=== PATIENT | male | born 1975 | race Caucasian/White ===

== ENCOUNTER 2018-03-17 10:56 | Inpatient (IN) | payer OTHER ==
[2018-03-17 12:12] VITALS: BMI 20.3
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
[2018-03-17] MEDS ORDERED: ACETAMINOPHEN 325 MG TABLET (FP) PO PRN (14:06)
[2018-03-17] MEDS ORDERED: IBUPROFEN 400 MG TABLET (FP) PO PRN (14:06)
[2018-03-17] MEDS ORDERED: guaiFENesin/D-METHORPHAN HB 10 ML UNIT-DOSE CUPS PO PRN (14:06)
[2018-03-17] MEDS ORDERED: LOPERAMIDE HCL 2 MG CAPSULE PO PRN (14:06)
[2018-03-17] MEDS ORDERED: MAGNESIUM HYDROX 2400MG/30ML ORAL SUSPENSION 30 ML CUP PO PRN (14:06)
[2018-03-17] MEDS ORDERED: MAGNESIUM CITRATE 300 ML BOTTLE PO PRN (14:06)
[2018-03-17] MEDS ORDERED: NICOTINE POLACRILEX 4 MG GUM BUC PRN (14:06)
[2018-03-17] MEDS ORDERED: P-EPHED 60MG/TRIPROLIDI 2.5MG TABLET PO PRN (14:06)
[2018-03-17] MEDS ORDERED: MENTHOL/PHENOL 1 EACH UD MM PRN (14:06)
[2018-03-17] MEDS ORDERED: hydrOXYzine PAMOATE 25 MG CAPSULE (FP) PO PRN (14:06)
[2018-03-17] MEDS ORDERED: chlordiazePOXIDE HCL 25 MG CAPSULE PO PRN (14:06)
[2018-03-17] MEDS ORDERED: MAG HYDROX/AL HYDROX/SIMETH 30 ML UNIT-DOSE CUP PO PRN (14:06)
[2018-03-17] MEDS ORDERED: ALBUTEROL SO4 8 GM HFA INHALER IH PRN (14:09)
[2018-03-17] MEDS: chlordiazePOXIDE HCL 25 MG CAPSULE PO SCH ×2 (17:20→22:05)
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
[2018-03-17] MEDS: THIAMINE HCL 100 MG TABLET (FP) PO SCH (22:05)
[2018-03-17] MEDS: MELATONIN 5 MG TABLETS PO PRN (22:06)
[2018-03-18] MEDS ORDERED: METHADONE HCL 40 MG DISPERSABLE TABLET ONE (04:15)
[2018-03-18] MEDS ORDERED: METHADONE HCL 10 MG TABLET ONE (04:15)
[2018-03-18] MEDS: METHADONE 80 MG, METHADONE 30 MG PO SCH (05:42)
[2018-03-18] MEDS: chlordiazePOXIDE HCL 25 MG CAPSULE PO SCH ×4 (05:42→22:15)
[2018-03-18] MEDS ORDERED: METHADONE HCL 10 MG TABLET PO SCH (06:00)
[2018-03-18] MEDS: PRENATAL VITAMINS W/ FOLIC ACID TABLET (FP) PO SCH (10:34)
[2018-03-18] MEDS: NICOTINE 21 MG/24 HOURS TOPICAL PATCH TD SCH (10:35)
[2018-03-18 10:59] LABS: URINE APPEARANCE CLEAR; URINE BILIRUBIN NEGATIVE (<2.0 mg/dL); URINE COLOR STRAW; URINE GLUCOSE (UA) NEGATIVE (NEGATIVE); URINE KETONE NEGATIVE (NEGATIVE); URINE LEUK ESTERASE NEGATIVE (NEGATIVE); URINE NITRITE NEGATIVE (NEGATIVE); URINE PROTEIN NEGATIVE (NEGATIVE); URINE UROBILINOGEN NEGATIVE mg/dL (0.2-1.0)
[2018-03-18 11:22] LABS: ALBUMIN 3.8 g/dl (3.4-5.0); ANION GAP 13 MMOL/L (8-16); BLOOD UREA NITROGEN 8 mg/dL (7-18); CALCIUM 8.6 mg/dL (8.5-10.1); CHLORIDE 104 mmol/L (98-107); CO2 21 mmol/L (21-32); GLUCOSE,RANDOM 143 mg/dL (74-106); POTASSIUM 4.2 mmol/L (3.5-5.1); SODIUM 138 mmol/L (136-145)
[2018-03-18 11:27] LABS: ALK PHOS 170 U/L (45-117); CREATININE 0.6 mg/dL (0.55-1.3); HEMATOCRIT 38.5 % (35.4-49); HEMOGLOBIN 12.9 GM/dL (11.7-16.9); MCH 33.9 pg (25.7-33.7); MCHC 33.4 g/dl (32.0-35.9); MEAN CELL VOLUME 101.6 fl (80-96); MEAN PLT VOLUME 10.4 fl (7.5-11.1); PLATELET COUNT 139 K/MM3 (134-434); RBC 3.79 M/mm3 (4.00-5.60); RDW 12.7 % (11.9-15.9); SGOT/AST 108 U/L (15-37); SGPT/ALT 117 U/L (13-61); TOT PROT 7.8 g/dl (6.4-8.2); WHITE BLOOD COUNT 6.2 K/mm3 (4.0-10.0)
[2018-03-18] MEDS: MELATONIN 5 MG TABLETS PO PRN (22:15)
[2018-03-18] MEDS: THIAMINE HCL 100 MG TABLET (FP) PO SCH (22:15)
[2018-03-19] MEDS ORDERED: METHADONE HCL 40 MG DISPERSABLE TABLET ONE (04:12)
[2018-03-19] MEDS ORDERED: METHADONE HCL 10 MG TABLET ONE (04:12)
[2018-03-19] MEDS: METHADONE 80 MG, METHADONE 30 MG PO SCH (05:37)
[2018-03-19] MEDS: chlordiazePOXIDE HCL 25 MG CAPSULE PO SCH ×2 (05:38→10:16)
[2018-03-19] MEDS: PRENATAL VITAMINS W/ FOLIC ACID TABLET (FP) PO SCH (10:16)
[2018-03-19] MEDS: NICOTINE 21 MG/24 HOURS TOPICAL PATCH TD SCH (10:16)
--- NOTE | 2018-03-19 16:30 | DS ---
[facility] Detox Discharge Summary Admission Date: 03/17/18 Discharge Date: 03/19/18 - History Present History: Alcohol Dependence, Opioid Dependence Pertinent Past History: Asthma Hepatitis C - Physical Exam Results Vital Signs: Vital Signs Temperature 97.4 F L 03/19/18 14:08 Pulse Rate 68 03/19/18 14:08 Respiratory Rate 18 03/19/18 14:08 Blood Pressure 108/74 03/19/18 14:08 O2 Sat by Pulse Oximetry (%) Pertinent Admission Physical Exam Findings: Withdrawal symptoms Laboratory Tests 03/18/18 03/18/18 03/18/18 05:40 05:40 05:40 WBC 6.2 RBC 3.79 L Hgb 12.9 Hct 38.5 MCV 101.6 H MCH 33.9 H MCHC 33.4 RDW 12.7 Plt Count 139 D MPV 10.4 Sodium 138 Potassium 4.2 Chloride 104 Carbon Dioxide 21 Anion Gap 13 BUN 8 Creatinine 0.6 Creat Clearance w eGFR > 60 Random Glucose 143 H Calcium 8.6 Total Bilirubin 1.0 AST 108 H ALT 117 H Alkaline Phosphatase 170 H Total Protein 7.8 Albumin 3.8 Urine Color Urine Appearance Urine pH Ur Specific [place] Urine Protein Urine Glucose (UA) Urine Ketones Urine Blood Urine Nitrite Urine Bilirubin Urine Urobilinogen Ur Leukocyte Esterase RPR Titer Nonreactive 03/18/18 09:00 WBC RBC Hgb Hct MCV MCH MCHC RDW Plt Count MPV Sodium Potassium Chloride Carbon Dioxide Anion Gap BUN Creatinine Creat Clearance w eGFR Random Glucose Calcium Total Bilirubin AST ALT Alkaline Phosphatase Total Protein Albumin Urine Color Straw Urine Appearance Clear Urine pH 6.0 Ur Specific [place] 1.004 Urine Protein Negative Urine Glucose (UA) Negative Urine Ketones Negative Urine Blood Negative Urine Nitrite Negative Urine Bilirubin Negative Urine Urobilinogen Negative Ur Leukocyte Esterase Negative RPR Titer Labs reviewed: serum glucose 143 - Medication Discharge Medications: Ambulatory Orders Albuterol Sulfate Inhaler - [Ventolin Hfa Inhaler -] 2 inh PO Q4H PRN 03/17/18 - Diagnosis (1) Hyperglycemia Current Visit: Yes Status: Acute (2) Alcohol dependence with withdrawal, uncomplicated Current Visit: Yes Status: Acute (3) Hepatitis C Current Visit: Yes Status: Chronic (4) Insomnia Current Visit: Yes Status: Acute (5) Nicotine dependence Current Visit: Yes Status: Chronic Qualifiers: Nicotine product type: cigarettes Substance use status: uncomplicated Qualified Code(s): F17.210 - Nicotine dependence, cigarettes, uncomplicated (6) Opioid dependence on agonist therapy Current Visit: Yes Status: Acute (7) Asthma Current Visit: Yes Status: Chronic Qualifiers: Asthma severity: mild Asthma persistence: intermittent (8) Depression Current Visit: Yes Status: Chronic Qualifiers: Depression Type: unspecified Qualified Code(s): F32.9 - Major depressive disorder, single episode, unspecified (9) Substance induced mood disorder Current Visit: Yes Status: Acute - AMA Did Patient Leave Against Medical Advice: Yes (F/U with PCP within 3 days, proceed to ER stat if feel sick)
[2018-03-19] MEDS: chlordiazePOXIDE 5 MG CAPSULE PO SCH ×2 (17:39→22:33)
[2018-03-19] MEDS: THIAMINE HCL 100 MG TABLET (FP) PO SCH (22:33)
[2018-03-19] MEDS: MELATONIN 5 MG TABLETS PO PRN (22:35)
--- NOTE | 2018-03-19 22:36 | EKG ---
Test Reason : Blood Pressure : / mmHG Vent. Rate : 067 BPM Atrial Rate : 067 BPM P-R Int : 128 ms QRS Dur : 090 ms QT Int : 392 ms P-R-T Axes : 074 069 047 degrees QTc Int : 414 ms NORMAL SINUS RHYTHM VOLTAGE CRITERIA FOR LEFT VENTRICULAR HYPERTROPHY ABNORMAL ECG NO PREVIOUS ECGS AVAILABLE Confirmed by JUDY GIVENS MD ([id number]) on 03/19/2018 10:36:23 PM Referred By: Confirmed By:JUDY GIVENS MD
[2018-03-20] MEDS ORDERED: METHADONE HCL 10 MG TABLET ONE (04:32)
[2018-03-20] MEDS ORDERED: METHADONE HCL 40 MG DISPERSABLE TABLET ONE (04:32)
[2018-03-20] MEDS: METHADONE 80 MG, METHADONE 30 MG PO SCH (05:39)
[2018-03-20] MEDS: chlordiazePOXIDE 5 MG CAPSULE PO SCH ×2 (05:39→10:25)
[2018-03-20 09:17] VITALS: BP 110/76; PULSE 83; TEMP 97.8
[2018-03-20] MEDS: PRENATAL VITAMINS W/ FOLIC ACID TABLET (FP) PO SCH (10:25)
[2018-03-20] MEDS: NICOTINE 21 MG/24 HOURS TOPICAL PATCH TD SCH (10:26)
--- NOTE | 2018-03-20 12:07 | PN ---
BHS Progress Note (SOAP) Subjective: requesting to be discharged today States he has to go take his daughter to school in the a.m Objective: 03/20/18 12:06 A & O x 3 Vital Signs Temperature 97.8 F 03/20/18 09:17 Pulse Rate 83 03/20/18 09:17 Respiratory Rate 18 03/20/18 09:17 Blood Pressure 110/76 03/20/18 09:17 O2 Sat by Pulse Oximetry (%) Assessment: 03/20/18 12:07 Prescription albuterol sent to [facility] Pt will sign out AMA
--- NOTE | 2018-03-20 12:10 | DS ---
[facility] Detox Discharge Summary Admission Date: 03/17/18 Discharge Date: 03/20/18 - History Additional Comments: pt signing out AMA pls see progress note - Physical Exam Results Vital Signs: Vital Signs Temperature 97.8 F 03/20/18 09:17 Pulse Rate 83 03/20/18 09:17 Respiratory Rate 18 03/20/18 09:17 Blood Pressure 110/76 03/20/18 09:17 O2 Sat by Pulse Oximetry (%) - Medication Discharge Medications: Ambulatory Orders Albuterol Sulfate Inhaler - [Ventolin HFA Inhaler -] 2 inh PO Q4H PRN #1 inhaler 03/20/18 - Diagnosis (1) Alcohol dependence with withdrawal, uncomplicated Current Visit: Yes Status: Acute (2) Opioid dependence on agonist therapy Current Visit: Yes Status: Chronic (3) Substance induced mood disorder Current Visit: Yes Status: Chronic (4) Asthma Current Visit: Yes Status: Chronic Qualifiers: Asthma severity: mild Asthma persistence: intermittent (5) Blind right eye Current Visit: Yes Status: Chronic (6) Depression Current Visit: Yes Status: Chronic Qualifiers: Depression Type: unspecified Qualified Code(s): F32.9 - Major depressive disorder, single episode, unspecified (7) Hepatitis C Current Visit: Yes Status: Chronic (8) Nicotine dependence Current Visit: Yes Status: Chronic Qualifiers: Nicotine product type: cigarettes Substance use status: uncomplicated Qualified Code(s): F17.210 - Nicotine dependence, cigarettes, uncomplicated - AMA Did Patient Leave Against Medical Advice: Yes
[2018-03-20] MEDS ORDERED: chlordiazePOXIDE HCL 10 MG CAPSULE PO SCH (17:00)
== END 2018-03-20 12:25 | disposition left against medical advice (07) | DRG 770 ==
LOC: YASAS 10:56 → Y3N 14:43
PROC: HZ2ZZZZ Detoxification Services for Substance Abuse Treatment (ICD-10-PCS; principal; 2018-03-17)
DX: F10.230 Alcohol dependence with withdrawal, uncomplicated (principal); F11.20 Opioid dependence, uncomplicated; F17.210 Nicotine dependence, cigarettes, uncomplicated; F19.24 Other psychoactive substance dependence with psychoactive substance-induced mood disorder; F32.9 Major depressive disorder, single episode, unspecified; G47.00 Insomnia, unspecified; J45.20 Mild intermittent asthma, uncomplicated; B18.2 Chronic viral hepatitis C; H54.61 Unqualified visual loss, right eye, normal vision left eye; R73.9 Hyperglycemia, unspecified; Z91.018 Allergy to other foods; Z91.5 Personal history of self-harm
CPT/HCPCS: 36415; 80053; 81003; 85027; 86593; 93005; 93010

== ENCOUNTER 2018-04-01 16:56 | Inpatient (IN) | payer OTHER ==
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
[2018-04-01] MEDS ORDERED: MENTHOL/PHENOL 1 EACH UD MM PRN (20:00)
[2018-04-01] MEDS ORDERED: P-EPHED 60MG/TRIPROLIDI 2.5MG TABLET PO PRN (20:00)
[2018-04-01] MEDS ORDERED: hydrOXYzine PAMOATE 25 MG CAPSULE (FP) PO PRN (20:00)
[2018-04-01] MEDS ORDERED: MAGNESIUM CITRATE 300 ML BOTTLE PO PRN (20:00)
[2018-04-01] MEDS ORDERED: chlordiazePOXIDE HCL 25 MG CAPSULE PO PRN (20:00)
[2018-04-01] MEDS ORDERED: NICOTINE POLACRILEX 2 MG GUM BC PRN (20:00)
[2018-04-01] MEDS ORDERED: LOPERAMIDE HCL 2 MG CAPSULE PO PRN (20:00)
[2018-04-01] MEDS ORDERED: guaiFENesin/D-METHORPHAN HB 10 ML UNIT-DOSE CUPS PO PRN (20:00)
[2018-04-01] MEDS ORDERED: MAGNESIUM HYDROX 2400MG/30ML ORAL SUSPENSION 30 ML CUP PO PRN (20:00)
[2018-04-01] MEDS ORDERED: ACETAMINOPHEN 325 MG TABLET (FP) PO PRN (20:00)
[2018-04-01] MEDS ORDERED: IBUPROFEN 400 MG TABLET (FP) PO PRN (20:00)
[2018-04-01] MEDS ORDERED: MAG HYDROX/AL HYDROX/SIMETH 30 ML UNIT-DOSE CUP PO PRN (20:00)
[2018-04-01 20:05] VITALS: BMI 20.9
[2018-04-01] MEDS ORDERED: ALBUTEROL SO4 8 GM HFA INHALER IH PRN (20:05)
[2018-04-01] MEDS ORDERED: MELATONIN 5 MG TABLETS PO PRN (22:00)
[2018-04-01] MEDS: THIAMINE HCL 100 MG TABLET (FP) PO SCH (23:15)
[2018-04-01] MEDS: chlordiazePOXIDE HCL 25 MG CAPSULE PO SCH (23:15)
[2018-04-02] MEDS: chlordiazePOXIDE HCL 25 MG CAPSULE PO SCH ×4 (05:49→22:21)
[2018-04-02] MEDS ORDERED: METHADONE HCL 10 MG TABLET PO ONE (09:15)
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
[2018-04-02] MEDS: METHADONE 80 MG, METHADONE 30 MG PO SCH (10:08)
[2018-04-02] MEDS ORDERED: METHADONE HCL 10 MG TABLET ONE (10:08)
[2018-04-02] MEDS ORDERED: METHADONE HCL 40 MG DISPERSABLE TABLET ONE (10:08)
[2018-04-02] MEDS: NICOTINE 21 MG/24 HOURS TOPICAL PATCH TD SCH (10:08)
[2018-04-02] MEDS: PRENATAL VITAMINS W/ FOLIC ACID TABLET (FP) PO SCH (10:08)
[2018-04-02 11:16] LABS: HEMOGLOBIN 13.1 GM/dL (11.7-16.9); MCH 33.3 pg (25.7-33.7); MCHC 32.8 g/dl (32.0-35.9); MEAN CELL VOLUME 101.6 fl (80-96); MEAN PLT VOLUME 9.9 fl (7.5-11.1); PLATELET COUNT 150 K/MM3 (134-434); RBC 3.94 M/mm3 (4.00-5.60); RDW 12.7 % (11.9-15.9); WHITE BLOOD COUNT 4.6 K/mm3 (4.0-10.0)
[2018-04-02 11:34] LABS: ALK PHOS 156 U/L (45-117); ANION GAP 6 MMOL/L (8-16); BILIRUBIN,TOTAL 0.6 mg/dL (0.2-1); BLOOD UREA NITROGEN 12 mg/dL (7-18); CALCIUM 8.6 mg/dL (8.5-10.1); CHLORIDE 104 mmol/L (98-107); CO2 30 mmol/L (21-32); CREATININE 0.7 mg/dL (0.55-1.3); GLUCOSE,RANDOM 89 mg/dL (74-106); POTASSIUM 4.2 mmol/L (3.5-5.1); SGOT/AST 81 U/L (15-37); SGPT/ALT 84 U/L (13-61); SODIUM 140 mmol/L (136-145); TOT PROT 6.8 g/dl (6.4-8.2)
--- NOTE | 2018-04-02 15:06 | PN ---
S CIWA - CIWA Score Nausea/Vomitin Muscle Tremors: 4-Moderate,w/Arms Extend Anxiety: 4-Mod. Anxious/Guarded Agitation: 4-Moderately Restless Paroxysmal Sweats: 3 Orientation: 0-Oriented Tacttile Disturbances: 0-None Auditory Disturbances: 0-None Visual Disturbances: 0-None Headache: 1-Very Mild CIWA-Ar Total Score: 18 BHS Progress Note (SOAP) Subjective: Tremor, vomiting, diarrhea, interrupted sleep, sweating Objective: 04/02/18 15:04 Last Vital Signs Temp Pulse Resp BP Pulse Ox 98.0 F 57 L 18 130/90 04/02/18 14:40 04/02/18 14:40 04/02/18 14:40 04/02/18 14:40 Laboratory Tests 04/02/18 04/02/18 04/02/18 07:49 07:49 07:49 WBC 4.6 RBC 3.94 L Hgb 13.1 Hct 40.0 MCV 101.6 H MCH 33.3 MCHC 32.8 RDW 12.7 Plt Count 150 MPV 9.9 Sodium 140 Potassium 4.2 Chloride 104 Carbon Dioxide 30 Anion Gap 6 L BUN 12 Creatinine 0.7 Creat Clearance w eGFR > 60 Random Glucose 89 Calcium 8.6 Total Bilirubin 0.6 AST 81 H ALT 84 H Alkaline Phosphatase 156 H Total Protein 6.8 Albumin 3.0 L RPR Titer Nonreactive Labs reviewed: follow up on UA Assessment: 04/02/18 15:06 Withdrawal symptoms Plan: Continue detox
[2018-04-02] MEDS: traZODone HCL 50 MG TABLET (FP) PO SCH (22:21)
[2018-04-02] MEDS: THIAMINE HCL 100 MG TABLET (FP) PO SCH (22:21)
[2018-04-03] MEDS ORDERED: METHADONE HCL 40 MG DISPERSABLE TABLET ONE (03:58)
[2018-04-03] MEDS ORDERED: METHADONE HCL 10 MG TABLET ONE (03:58)
[2018-04-03] MEDS: METHADONE 80 MG, METHADONE 30 MG PO SCH (05:55)
[2018-04-03] MEDS: chlordiazePOXIDE HCL 25 MG CAPSULE PO SCH ×3 (05:55→17:36)
[2018-04-03] MEDS ORDERED: METHADONE HCL 10 MG TABLET PO SCH (06:00)
[2018-04-03] MEDS: NICOTINE 21 MG/24 HOURS TOPICAL PATCH TD SCH (10:10)
[2018-04-03] MEDS: PRENATAL VITAMINS W/ FOLIC ACID TABLET (FP) PO SCH (10:11)
--- NOTE | 2018-04-03 16:56 | PN ---
S CIWA - CIWA Score Nausea/Vomitin Muscle Tremors: 3 Anxiety: 3 Agitation: 2 Paroxysmal Sweats: 3 Orientation: 0-Oriented Tacttile Disturbances: 0-None Auditory Disturbances: 0-None Visual Disturbances: 0-None Headache: 0-None Present CIWA-Ar Total Score: 13 BHS Progress Note (SOAP) Subjective: SWEATS SHAKES SLEEP DISORDER Objective: 04/03/18 16:52 A & O X 3 Vital Signs Temperature 97.1 F L 04/03/18 13:26 Pulse Rate 73 04/03/18 13:26 Respiratory Rate 18 04/03/18 13:26 Blood Pressure 98/61 04/03/18 13:26 O2 Sat by Pulse Oximetry (%) Laboratory Last Values WBC 4.6 K/mm3 (4.0-10.0) 04/02/18 07:49 RBC 3.94 M/mm3 (4.00-5.60) L 04/02/18 07:49 Hgb 13.1 GM/dL (11.7-16.9) 04/02/18 07:49 Hct 40.0 % (35.4-49) 04/02/18 07:49 MCV 101.6 fl (80-96) H 04/02/18 07:49 MCH 33.3 pg (25.7-33.7) 04/02/18 07:49 MCHC 32.8 g/dl (32.0-35.9) 04/02/18 07:49 RDW 12.7 % (11.9-15.9) 04/02/18 07:49 Plt Count 150 K/MM3 (134-434) 04/02/18 07:49 MPV 9.9 fl (7.5-11.1) 04/02/18 07:49 Sodium 140 mmol/L (136-145) 04/02/18 07:49 Potassium 4.2 mmol/L (3.5-5.1) 04/02/18 07:49 Chloride 104 mmol/L (98-107) 04/02/18 07:49 Carbon Dioxide 30 mmol/L (21-32) 04/02/18 07:49 Anion Gap 6 MMOL/L (8-16) L 04/02/18 07:49 BUN 12 mg/dL (7-18) 04/02/18 07:49 Creatinine 0.7 mg/dL (0.55-1.3) 04/02/18 07:49 Creat Clearance w eGFR > 60 (>60) 04/02/18 07:49 Random Glucose 89 mg/dL (74-106) 04/02/18 07:49 Calcium 8.6 mg/dL (8.5-10.1) 04/02/18 07:49 Total Bilirubin 0.6 mg/dL (0.2-1) 04/02/18 07:49 AST 81 U/L (15-37) H 04/02/18 07:49 ALT 84 U/L (13-61) H 04/02/18 07:49 Alkaline Phosphatase 156 U/L (45-117) H 04/02/18 07:49 Total Protein 6.8 g/dl (6.4-8.2) 04/02/18 07:49 Albumin 3.0 g/dl (3.4-5.0) L 04/02/18 07:49 RPR Titer Nonreactive (NONREACTIVE) 04/02/18 07:49 UA PENDING Assessment: 04/03/18 16:56 WITHDRAWAL SX Plan: CONTINUE DETOX INCREASE WATER HYDRATION
[2018-04-03 18:05] LABS: URINE APPEARANCE CLEAR; URINE BILIRUBIN NEGATIVE (<2.0 mg/dL); URINE COLOR YELLOW; URINE GLUCOSE (UA) NEGATIVE (NEGATIVE); URINE KETONE NEGATIVE (NEGATIVE); URINE LEUK ESTERASE TRACE (NEGATIVE); URINE NITRITE NEGATIVE (NEGATIVE); URINE PROTEIN NEGATIVE (NEGATIVE); URINE UROBILINOGEN NEGATIVE mg/dL (0.2-1.0)
[2018-04-03 18:38] LABS: CALCIUM OXALATE CRYSTALS RARE /hpf (NONE SEEN); EPI CELLS RARE /HPF (FEW); URINE BACTERIA RARE /hpf (NONE SEEN); URINE HYALINE CAST 7 /lpf; URINE MUCUS RARE
[2018-04-03] MEDS: traZODone HCL 50 MG TABLET (FP) PO SCH (22:19)
[2018-04-03] MEDS: chlordiazePOXIDE 5 MG CAPSULE PO SCH (22:19)
[2018-04-03] MEDS: THIAMINE HCL 100 MG TABLET (FP) PO SCH (22:19)
[2018-04-04] MEDS ORDERED: METHADONE HCL 10 MG TABLET ONE (04:50)
[2018-04-04] MEDS ORDERED: METHADONE HCL 40 MG DISPERSABLE TABLET ONE (04:51)
[2018-04-04] MEDS: METHADONE 80 MG, METHADONE 30 MG PO SCH (05:10)
[2018-04-04] MEDS: chlordiazePOXIDE 5 MG CAPSULE PO SCH ×2 (05:10→10:14)
[2018-04-04 09:24] VITALS: BP 131/91; PULSE 81; TEMP 98.2
[2018-04-04] MEDS: NICOTINE 21 MG/24 HOURS TOPICAL PATCH TD SCH (10:14)
[2018-04-04] MEDS: PRENATAL VITAMINS W/ FOLIC ACID TABLET (FP) PO SCH (10:14)
--- NOTE | 2018-04-04 11:08 | EKG ---
Test Reason : Blood Pressure : / mmHG Vent. Rate : 068 BPM Atrial Rate : 068 BPM P-R Int : 142 ms QRS Dur : 084 ms QT Int : 394 ms P-R-T Axes : 072 072 058 degrees QTc Int : 418 ms NORMAL SINUS RHYTHM NORMAL ECG WHEN COMPARED WITH ECG OF 17-MAR-2018 15:38, NO SIGNIFICANT CHANGE WAS FOUND Confirmed by Chance Velasquez MD ([id number]) on 04/04/2018 11:07:41 AM Referred By: Confirmed By:Chance Velasquez MD
--- NOTE | 2018-04-04 11:36 | DS ---
[facility] Detox Discharge Summary Admission Date: 04/01/18 Discharge Date: 04/04/18 - History Present History: Alcohol Dependence - Physical Exam Results Vital Signs: Vital Signs Temperature 98.2 F 04/04/18 09:23 Pulse Rate 81 04/04/18 09:23 Respiratory Rate 20 04/04/18 09:23 Blood Pressure 131/91 04/04/18 09:23 O2 Sat by Pulse Oximetry (%) Pertinent Admission Physical Exam Findings: PATIENT ALERT AND ORIENTED X 3. AMBULATORY AD CESAR. IN NAD. MEDICALLY STABLE. DENIES SI/HI. STATES HE WOULD LIKE TO BE DISCHARGED TODAY HE HAS BILLS TO PAY. HAS FOLLOW UP APPOINTMENT WITH [facility] NEXT WEEK. PATIENT ENCOURAGED TO GO TO ER IF WITHDRAWAL SYMPTOMS OCCUR. ENCOURAGED TO FOLLOW UP WITH [facility] AND [facility] TO PREVENT RELAPSE. - Treatment Hospital Course: Detox Protocol Followed, Detoxed Safely, Responded well, Discharged Condition Good, Rehab Referral Accepted Patient has Accepted a Rehab Referral to: [facility] - Medication Discharge Medications: Ambulatory Orders Albuterol Sulfate Inhaler - [Ventolin HFA Inhaler -] 2 inh PO Q4H PRN #1 inhaler 04/04/18 - AMA Did Patient Leave Against Medical Advice: No
[2018-04-04] MEDS ORDERED: chlordiazePOXIDE HCL 10 MG CAPSULE PO SCH (23:00)
== END 2018-04-04 10:32 | disposition home or self-care (01) | DRG 773 ==
LOC: YASAS 16:56 → Y3N 20:18
PROC: HZ2ZZZZ Detoxification Services for Substance Abuse Treatment (ICD-10-PCS; principal; 2018-04-01)
DX: F10.230 Alcohol dependence with withdrawal, uncomplicated (principal); F11.20 Opioid dependence, uncomplicated; F17.210 Nicotine dependence, cigarettes, uncomplicated; F41.8 Other specified anxiety disorders; F19.24 Other psychoactive substance dependence with psychoactive substance-induced mood disorder; B18.2 Chronic viral hepatitis C; J45.998 Other asthma; H54.40 Blindness, one eye, unspecified eye; G47.00 Insomnia, unspecified; Z87.898 Personal history of other specified conditions; Z91.5 Personal history of self-harm
CPT/HCPCS: 36415; 80053; 81003; 81015; 85027; 86593; 93005; 93010

== ENCOUNTER 2018-05-12 15:43 | Inpatient (IN) | payer OTHER ==
[2018-05-12 16:52] VITALS: BMI 20.5
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
[2018-05-12] MEDS ORDERED: LOPERAMIDE HCL 2 MG CAPSULE PO PRN (21:23)
[2018-05-12] MEDS ORDERED: MENTHOL/PHENOL 1 EACH UD MM PRN (21:23)
[2018-05-12] MEDS ORDERED: chlordiazePOXIDE HCL 25 MG CAPSULE PO PRN (21:23)
[2018-05-12] MEDS ORDERED: IBUPROFEN 400 MG TABLET (FP) PO PRN (21:23)
[2018-05-12] MEDS ORDERED: P-EPHED 60MG/TRIPROLIDI 2.5MG TABLET PO PRN (21:23)
[2018-05-12] MEDS ORDERED: ACETAMINOPHEN 325 MG TABLET (FP) PO PRN (21:23)
[2018-05-12] MEDS ORDERED: NICOTINE POLACRILEX 2 MG GUM BC PRN (21:23)
[2018-05-12] MEDS ORDERED: MAG HYDROX/AL HYDROX/SIMETH 30 ML UNIT-DOSE CUP PO PRN (21:23)
[2018-05-12] MEDS ORDERED: MAGNESIUM CITRATE 300 ML BOTTLE PO PRN (21:23)
[2018-05-12] MEDS ORDERED: MAGNESIUM HYDROX 2400MG/30ML ORAL SUSPENSION 30 ML CUP PO PRN (21:23)
[2018-05-12] MEDS ORDERED: guaiFENesin/D-METHORPHAN HB 10 ML UNIT-DOSE CUPS PO PRN (21:23)
[2018-05-12] MEDS ORDERED: ALBUTEROL SO4 8 GM HFA INHALER IH PRN (21:25)
[2018-05-13] MEDS: chlordiazePOXIDE HCL 25 MG CAPSULE PO SCH ×5 (00:49→22:24)
[2018-05-13] MEDS: THIAMINE HCL 100 MG TABLET (FP) PO SCH ×2 (00:52→22:24)
[2018-05-13] MEDS ORDERED: NICOTINE 14 MG/24 HOURS TOPICAL PATCH TD SCH (10:00)
[2018-05-13] MEDS: PRENATAL VITAMINS W/ FOLIC ACID TABLET (FP) PO SCH (10:29)
[2018-05-13] MEDS: NICOTINE 21 MG/24 HOURS TOPICAL PATCH TD SCH (10:30)
[2018-05-13] MEDS ORDERED: METHADONE HCL 10 MG TABLET PO SCH ×2 (10:45→11:14)
[2018-05-13 11:11] LABS: URINE APPEARANCE CLEAR; URINE BILIRUBIN NEGATIVE (<2.0 mg/dL); URINE COLOR STRAW; URINE GLUCOSE (UA) NEGATIVE (NEGATIVE); URINE KETONE NEGATIVE (NEGATIVE); URINE LEUK ESTERASE NEGATIVE (NEGATIVE); URINE NITRITE NEGATIVE (NEGATIVE); URINE PROTEIN NEGATIVE (NEGATIVE); URINE UROBILINOGEN NEGATIVE mg/dL (0.2-1.0)
[2018-05-13 11:17] LABS: ALBUMIN 3.3 g/dl (3.4-5.0); ALK PHOS 184 U/L (45-117); ANION GAP 5 MMOL/L (8-16); BILIRUBIN,TOTAL 0.7 mg/dL (0.2-1); BLOOD UREA NITROGEN 10 mg/dL (7-18); CALCIUM 9.3 mg/dL (8.5-10.1); CHLORIDE 99 mmol/L (98-107); CO2 34 mmol/L (21-32); CREATININE 0.7 mg/dL (0.55-1.3); GLUCOSE,RANDOM 86 mg/dL (74-106); POTASSIUM 4.2 mmol/L (3.5-5.1); SGOT/AST 75 U/L (15-37); SGPT/ALT 74 U/L (13-61); SODIUM 137 mmol/L (136-145); TOT PROT 7.6 g/dl (6.4-8.2)
[2018-05-13] MEDS ORDERED: METHADONE HCL 10 MG TABLET PO ONE (11:25)
[2018-05-13 11:29] LABS: HEMATOCRIT 39.6 % (35.4-49); HEMOGLOBIN 13.3 GM/dL (11.7-16.9); MCH 33.4 pg (25.7-33.7); MCHC 33.5 g/dl (32.0-35.9); MEAN CELL VOLUME 99.8 fl (80-96); MEAN PLT VOLUME 8.7 fl (7.5-11.1); PLATELET COUNT 206 K/MM3 (134-434); RBC 3.97 M/mm3 (4.00-5.60); RDW 12.8 % (11.9-15.9); WHITE BLOOD COUNT 5.6 K/mm3 (4.0-10.0)
[2018-05-13] MEDS ORDERED: METHADONE HCL 40 MG DISPERSABLE TABLET ONE (11:41)
[2018-05-13] MEDS ORDERED: METHADONE HCL 10 MG TABLET ONE (11:42)
[2018-05-13] MEDS ORDERED: METHADONE 80 MG, METHADONE 30 MG PO ONE (11:45)
--- NOTE | 2018-05-13 12:16 | PN ---
S CIWA - CIWA Score Nausea/Vomitin Muscle Tremors: 2 Anxiety: 3 Agitation: 3 Paroxysmal Sweats: 2 Orientation: 0-Oriented Tacttile Disturbances: 0-None Auditory Disturbances: 0-None Visual Disturbances: 0-None Headache: 0-None Present CIWA-Ar Total Score: 12 BHS Progress Note (SOAP) Subjective: PATIENT C/O DIARRHEA, ANXIETY, RESTLESSNESS AND SHAKES. Objective: 05/13/18 12:13 Laboratory Tests 05/13/18 05/13/18 05/13/18 07:30 07:30 07:30 WBC 5.6 RBC 3.97 L Hgb 13.3 Hct 39.6 MCV 99.8 H MCH 33.4 MCHC 33.5 RDW 12.8 Plt Count 206 D MPV 8.7 D Sodium 137 Potassium 4.2 Chloride 99 Carbon Dioxide 34 H Anion Gap 5 L BUN 10 Creatinine 0.7 Creat Clearance w eGFR > 60 Random Glucose 86 Calcium 9.3 Total Bilirubin 0.7 AST 75 H ALT 74 H Alkaline Phosphatase 184 H Total Protein 7.6 Albumin 3.3 L Urine Color Urine Appearance Urine pH Ur Specific [place] Urine Protein Urine Glucose (UA) Urine Ketones Urine Blood Urine Nitrite Urine Bilirubin Urine Urobilinogen Ur Leukocyte Esterase RPR Titer Nonreactive 05/13/18 08:30 WBC RBC Hgb Hct MCV MCH MCHC RDW Plt Count MPV Sodium Potassium Chloride Carbon Dioxide Anion Gap BUN Creatinine Creat Clearance w eGFR Random Glucose Calcium Total Bilirubin AST ALT Alkaline Phosphatase Total Protein Albumin Urine Color Straw Urine Appearance Clear Urine pH 8.0 D Ur Specific [place] 1.010 Urine Protein Negative Urine Glucose (UA) Negative Urine Ketones Negative Urine Blood Negative Urine Nitrite Negative Urine Bilirubin Negative Urine Urobilinogen Negative Ur Leukocyte Esterase Negative RPR Titer PE: SKIN WARM AND MOIST CAR S1S2 RESP CTA BL GI SOFT, BS+ NT EXT FULL ROM, AMB AD CESAR, +TREMORS Assessment: 05/13/18 12:14 WITHDRAWAL SX Plan: CONTINUE DETOX ORDERED ENCOURAGE ORAL FLUIDS METHADONE DOSE VERIFIED AT [facility] FOR 110MG DAILY- STAT DOSE ORDERED FOR TODAY AND THEN TO CONTINUE TOMORROW DAILY AT 6AM CONTINUE TO MONITOR CLINICALLY
[2018-05-13] MEDS: MELATONIN 5 MG TABLETS PO PRN (22:25)
[2018-05-14] MEDS ORDERED: METHADONE HCL 40 MG DISPERSABLE TABLET ONE (04:40)
[2018-05-14] MEDS ORDERED: METHADONE HCL 10 MG TABLET ONE (04:41)
[2018-05-14] MEDS ORDERED: METHADONE HCL 10 MG TABLET PO SCH (06:00)
[2018-05-14] MEDS: chlordiazePOXIDE HCL 25 MG CAPSULE PO SCH ×3 (06:29→16:28)
[2018-05-14] MEDS: METHADONE 80 MG, METHADONE 30 MG PO SCH (06:29)
[2018-05-14] MEDS: PRENATAL VITAMINS W/ FOLIC ACID TABLET (FP) PO SCH (10:34)
[2018-05-14] MEDS: NICOTINE 21 MG/24 HOURS TOPICAL PATCH TD SCH (10:35)
--- NOTE | 2018-05-14 12:49 | PN ---
S CIWA - CIWA Score Nausea/Vomitin-Mild Nausea/No Vomiting Muscle Tremors: 3 Anxiety: 2 Agitation: 1-Slight > Activity Paroxysmal Sweats: 1-Minimal Palms Moist Orientation: 0-Oriented Tacttile Disturbances: 1-Very Mild Itch/Numbness Auditory Disturbances: 0-None Visual Disturbances: 0-None Headache: 1-Very Mild CIWA-Ar Total Score: 10 BHS Progress Note (SOAP) Subjective: tremor sweat anxiety restlessness gi distress methadone 110 mg Objective: 05/14/18 12:47 Vital Signs Temperature 99.1 F 05/14/18 09:36 Pulse Rate 93 H 05/14/18 09:36 Respiratory Rate 16 05/14/18 09:36 Blood Pressure 124/80 05/14/18 09:36 O2 Sat by Pulse Oximetry (%) Laboratory Last Values WBC 5.6 K/mm3 (4.0-10.0) 05/13/18 07:30 RBC 3.97 M/mm3 (4.00-5.60) L 05/13/18 07:30 Hgb 13.3 GM/dL (11.7-16.9) 05/13/18 07:30 Hct 39.6 % (35.4-49) 05/13/18 07:30 MCV 99.8 fl (80-96) H 05/13/18 07:30 MCH 33.4 pg (25.7-33.7) 05/13/18 07:30 MCHC 33.5 g/dl (32.0-35.9) 05/13/18 07:30 RDW 12.8 % (11.9-15.9) 05/13/18 07:30 Plt Count 206 K/MM3 (134-434) D 05/13/18 07:30 MPV 8.7 fl (7.5-11.1) D 05/13/18 07:30 Sodium 137 mmol/L (136-145) 05/13/18 07:30 Potassium 4.2 mmol/L (3.5-5.1) 05/13/18 07:30 Chloride 99 mmol/L (98-107) 05/13/18 07:30 Carbon Dioxide 34 mmol/L (21-32) H 05/13/18 07:30 Anion Gap 5 MMOL/L (8-16) L 05/13/18 07:30 BUN 10 mg/dL (7-18) 05/13/18 07:30 Creatinine 0.7 mg/dL (0.55-1.3) 05/13/18 07:30 Creat Clearance w eGFR > 60 (>60) 05/13/18 07:30 Random Glucose 86 mg/dL (74-106) 05/13/18 07:30 Calcium 9.3 mg/dL (8.5-10.1) 05/13/18 07:30 Total Bilirubin 0.7 mg/dL (0.2-1) 05/13/18 07:30 AST 75 U/L (15-37) H 05/13/18 07:30 ALT 74 U/L (13-61) H 05/13/18 07:30 Alkaline Phosphatase 184 U/L (45-117) H 05/13/18 07:30 Total Protein 7.6 g/dl (6.4-8.2) 05/13/18 07:30 Albumin 3.3 g/dl (3.4-5.0) L 05/13/18 07:30 Urine Color Straw 05/13/18 08:30 Urine Appearance Clear 05/13/18 08:30 Urine pH 8.0 (5.0-8.0) D 05/13/18 08:30 Ur Specific [place] 1.010 (1.010-1.035) 05/13/18 08:30 Urine Protein Negative (NEGATIVE) 05/13/18 08:30 Urine Glucose (UA) Negative (NEGATIVE) 05/13/18 08:30 Urine Ketones Negative (NEGATIVE) 05/13/18 08:30 Urine Blood Negative (NEGATIVE) 05/13/18 08:30 Urine Nitrite Negative (NEGATIVE) 05/13/18 08:30 Urine Bilirubin Negative (<2.0 mg/dL) 05/13/18 08:30 Urine Urobilinogen Negative mg/dL (0.2-1.0) 05/13/18 08:30 Ur Leukocyte Esterase Negative (NEGATIVE) 05/13/18 08:30 RPR Titer Nonreactive (NONREACTIVE) 05/13/18 07:30 lab noted Assessment: 05/14/18 12:48 withdrawal sx discontinue motrin begin zantac ensure Plan: continue detox
[2018-05-14] MEDS: RANITIDINE HCL 150 MG TABLET (FP) PO SCH ×2 (15:02→22:25)
--- NOTE | 2018-05-14 19:32 | EKG ---
Test Reason : Blood Pressure : / mmHG Vent. Rate : 062 BPM Atrial Rate : 062 BPM P-R Int : 124 ms QRS Dur : 082 ms QT Int : 402 ms P-R-T Axes : 069 071 053 degrees QTc Int : 408 ms NORMAL SINUS RHYTHM NORMAL ECG WHEN COMPARED WITH ECG OF 01-APR-2018 21:55, T WAVE VARIATION Confirmed by JOSE ALEJANDRO GARCIA MD ([id number]) on 05/14/2018 7:32:19 PM Referred By: Confirmed By:JOSE ALEJANDRO GARCIA MD
[2018-05-14] MEDS: chlordiazePOXIDE 5 MG CAPSULE PO SCH (22:25)
[2018-05-14] MEDS: THIAMINE HCL 100 MG TABLET (FP) PO SCH (22:25)
[2018-05-14] MEDS: MELATONIN 5 MG TABLETS PO PRN (22:25)
[2018-05-15] MEDS ORDERED: METHADONE HCL 40 MG DISPERSABLE TABLET ONE (05:39)
[2018-05-15] MEDS ORDERED: METHADONE HCL 10 MG TABLET ONE (05:40)
[2018-05-15] MEDS: chlordiazePOXIDE 5 MG CAPSULE PO SCH ×3 (06:10→18:40)
[2018-05-15] MEDS: METHADONE 80 MG, METHADONE 30 MG PO SCH (06:10)
[2018-05-15] MEDS: PRENATAL VITAMINS W/ FOLIC ACID TABLET (FP) PO SCH (10:07)
[2018-05-15] MEDS: RANITIDINE HCL 150 MG TABLET (FP) PO SCH ×2 (10:07→21:59)
[2018-05-15] MEDS: NICOTINE 21 MG/24 HOURS TOPICAL PATCH TD SCH (10:07)
--- NOTE | 2018-05-15 10:38 | PN ---
BHS Progress Note (SOAP) Subjective: feeling better no tremor less sweat no gi distress social with peers in day room sleep better at night Objective: 05/15/18 10:36 Vital Signs Temperature 98.2 F 05/15/18 09:31 Pulse Rate 83 05/15/18 09:31 Respiratory Rate 16 05/15/18 09:31 Blood Pressure 110/75 05/15/18 09:31 O2 Sat by Pulse Oximetry (%) Laboratory Last Values WBC 5.6 K/mm3 (4.0-10.0) 05/13/18 07:30 RBC 3.97 M/mm3 (4.00-5.60) L 05/13/18 07:30 Hgb 13.3 GM/dL (11.7-16.9) 05/13/18 07:30 Hct 39.6 % (35.4-49) 05/13/18 07:30 MCV 99.8 fl (80-96) H 05/13/18 07:30 MCH 33.4 pg (25.7-33.7) 05/13/18 07:30 MCHC 33.5 g/dl (32.0-35.9) 05/13/18 07:30 RDW 12.8 % (11.9-15.9) 05/13/18 07:30 Plt Count 206 K/MM3 (134-434) D 05/13/18 07:30 MPV 8.7 fl (7.5-11.1) D 05/13/18 07:30 Sodium 137 mmol/L (136-145) 05/13/18 07:30 Potassium 4.2 mmol/L (3.5-5.1) 05/13/18 07:30 Chloride 99 mmol/L (98-107) 05/13/18 07:30 Carbon Dioxide 34 mmol/L (21-32) H 05/13/18 07:30 Anion Gap 5 MMOL/L (8-16) L 05/13/18 07:30 BUN 10 mg/dL (7-18) 05/13/18 07:30 Creatinine 0.7 mg/dL (0.55-1.3) 05/13/18 07:30 Creat Clearance w eGFR > 60 (>60) 05/13/18 07:30 Random Glucose 86 mg/dL (74-106) 05/13/18 07:30 Calcium 9.3 mg/dL (8.5-10.1) 05/13/18 07:30 Total Bilirubin 0.7 mg/dL (0.2-1) 05/13/18 07:30 AST 75 U/L (15-37) H 05/13/18 07:30 ALT 74 U/L (13-61) H 05/13/18 07:30 Alkaline Phosphatase 184 U/L (45-117) H 05/13/18 07:30 Total Protein 7.6 g/dl (6.4-8.2) 05/13/18 07:30 Albumin 3.3 g/dl (3.4-5.0) L 05/13/18 07:30 Urine Color Straw 05/13/18 08:30 Urine Appearance Clear 05/13/18 08:30 Urine pH 8.0 (5.0-8.0) D 05/13/18 08:30 Ur Specific [place] 1.010 (1.010-1.035) 05/13/18 08:30 Urine Protein Negative (NEGATIVE) 05/13/18 08:30 Urine Glucose (UA) Negative (NEGATIVE) 05/13/18 08:30 Urine Ketones Negative (NEGATIVE) 05/13/18 08:30 Urine Blood Negative (NEGATIVE) 05/13/18 08:30 Urine Nitrite Negative (NEGATIVE) 05/13/18 08:30 Urine Bilirubin Negative (<2.0 mg/dL) 05/13/18 08:30 Urine Urobilinogen Negative mg/dL (0.2-1.0) 05/13/18 08:30 Ur Leukocyte Esterase Negative (NEGATIVE) 05/13/18 08:30 RPR Titer Nonreactive (NONREACTIVE) 05/13/18 07:30 lab noted Assessment: 05/15/18 10:36 mild withdrawal sx Plan: medically supervised detox
[2018-05-15] MEDS: THIAMINE HCL 100 MG TABLET (FP) PO SCH (21:59)
[2018-05-15] MEDS: chlordiazePOXIDE HCL 10 MG CAPSULE PO SCH (21:59)
[2018-05-15] MEDS: MELATONIN 5 MG TABLETS PO PRN (22:00)
[2018-05-16] MEDS ORDERED: METHADONE HCL 40 MG DISPERSABLE TABLET ONE (04:34)
[2018-05-16] MEDS ORDERED: METHADONE HCL 10 MG TABLET ONE (04:34)
[2018-05-16] MEDS: chlordiazePOXIDE HCL 10 MG CAPSULE PO SCH ×2 (05:37→10:25)
[2018-05-16] MEDS: METHADONE 80 MG, METHADONE 30 MG PO SCH (05:37)
[2018-05-16 09:10] VITALS: BP 116/72; PULSE 68; TEMP 98.4
[2018-05-16] MEDS: PRENATAL VITAMINS W/ FOLIC ACID TABLET (FP) PO SCH (10:25)
[2018-05-16] MEDS: RANITIDINE HCL 150 MG TABLET (FP) PO SCH (10:25)
[2018-05-16] MEDS: NICOTINE 21 MG/24 HOURS TOPICAL PATCH TD SCH (10:27)
--- NOTE | 2018-05-16 12:54 | DS ---
[facility] Detox Discharge Summary Admission Date: 05/12/18 Discharge Date: 05/16/18 - History Present History: Alcohol Dependence Additional Comments: 43 years old male admitted on 05/12/18 for alcohol withdrawal sx alert oriented x 3 no acute distress completed alcohol detox regimen tolerated well denies alcohol withdrawal sx after[facility] - Physical Exam Results Vital Signs: Vital Signs Temperature 98.4 F 05/16/18 09:09 Pulse Rate 68 05/16/18 09:09 Respiratory Rate 18 05/16/18 09:09 Blood Pressure 116/72 05/16/18 09:09 O2 Sat by Pulse Oximetry (%) Pertinent Admission Physical Exam Findings: alcohol withdrawal sx Vital Signs Temperature 98.4 F 05/16/18 09:09 Pulse Rate 68 05/16/18 09:09 Respiratory Rate 18 05/16/18 09:09 Blood Pressure 116/72 05/16/18 09:09 O2 Sat by Pulse Oximetry (%) Laboratory Last Values WBC 5.6 K/mm3 (4.0-10.0) 05/13/18 07:30 RBC 3.97 M/mm3 (4.00-5.60) L 05/13/18 07:30 Hgb 13.3 GM/dL (11.7-16.9) 05/13/18 07:30 Hct 39.6 % (35.4-49) 05/13/18 07:30 MCV 99.8 fl (80-96) H 05/13/18 07:30 MCH 33.4 pg (25.7-33.7) 05/13/18 07:30 MCHC 33.5 g/dl (32.0-35.9) 05/13/18 07:30 RDW 12.8 % (11.9-15.9) 05/13/18 07:30 Plt Count 206 K/MM3 (134-434) D 05/13/18 07:30 MPV 8.7 fl (7.5-11.1) D 05/13/18 07:30 Sodium 137 mmol/L (136-145) 05/13/18 07:30 Potassium 4.2 mmol/L (3.5-5.1) 05/13/18 07:30 Chloride 99 mmol/L (98-107) 05/13/18 07:30 Carbon Dioxide 34 mmol/L (21-32) H 05/13/18 07:30 Anion Gap 5 MMOL/L (8-16) L 05/13/18 07:30 BUN 10 mg/dL (7-18) 05/13/18 07:30 Creatinine 0.7 mg/dL (0.55-1.3) 05/13/18 07:30 Creat Clearance w eGFR > 60 (>60) 05/13/18 07:30 Random Glucose 86 mg/dL (74-106) 05/13/18 07:30 Calcium 9.3 mg/dL (8.5-10.1) 05/13/18 07:30 Total Bilirubin 0.7 mg/dL (0.2-1) 05/13/18 07:30 AST 75 U/L (15-37) H 05/13/18 07:30 ALT 74 U/L (13-61) H 05/13/18 07:30 Alkaline Phosphatase 184 U/L (45-117) H 05/13/18 07:30 Total Protein 7.6 g/dl (6.4-8.2) 05/13/18 07:30 Albumin 3.3 g/dl (3.4-5.0) L 05/13/18 07:30 Urine Color Straw 05/13/18 08:30 Urine Appearance Clear 05/13/18 08:30 Urine pH 8.0 (5.0-8.0) D 05/13/18 08:30 Ur Specific [place] 1.010 (1.010-1.035) 05/13/18 08:30 Urine Protein Negative (NEGATIVE) 05/13/18 08:30 Urine Glucose (UA) Negative (NEGATIVE) 05/13/18 08:30 Urine Ketones Negative (NEGATIVE) 05/13/18 08:30 Urine Blood Negative (NEGATIVE) 05/13/18 08:30 Urine Nitrite Negative (NEGATIVE) 05/13/18 08:30 Urine Bilirubin Negative (<2.0 mg/dL) 05/13/18 08:30 Urine Urobilinogen Negative mg/dL (0.2-1.0) 05/13/18 08:30 Ur Leukocyte Esterase Negative (NEGATIVE) 05/13/18 08:30 RPR Titer Nonreactive (NONREACTIVE) 05/13/18 07:30 lab noted - Treatment Hospital Course: Detox Protocol Followed, Detoxed Safely, Responded well, Discharged Condition Good, Rehab Referral Accepted Patient has Accepted a Rehab Referral to: [facility] - Medication Discharge Medications: Ambulatory Orders Methadone [Dolophine -] 110 mg PO 05/14/18 Albuterol Sulfate Inhaler - [Ventolin HFA Inhaler -] 2 inh PO Q4H PRN #1 inhaler 05/15/18 - Diagnosis (1) Alcohol dependence with withdrawal, uncomplicated Current Visit: Yes Status: Acute (2) Asthma Current Visit: Yes Status: Chronic Qualifiers: Asthma severity: mild Asthma persistence: intermittent Asthma complication type: with status asthmaticus Qualified Code(s): J45.22 - Mild intermittent asthma with status asthmaticus (3) Hepatitis C Current Visit: No Status: Chronic Qualifiers: Viral hepatitis chronicity: chronic Hepatic coma status: without hepatic coma Qualified Code(s): B18.2 - Chronic viral hepatitis C (4) Nicotine dependence Current Visit: Yes Status: Acute Qualifiers: Nicotine product type: cigarettes Substance use status: in withdrawal Qualified Code(s): F17.213 - Nicotine dependence, cigarettes, with withdrawal (5) Weight decreased Current Visit: Yes Status: Acute (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
== END 2018-05-16 13:22 | disposition other institution (70) | DRG 775 ==
LOC: YASAS 15:43 → Y6N 22:44
PROC: HZ2ZZZZ Detoxification Services for Substance Abuse Treatment (ICD-10-PCS; principal; 2018-05-12)
DX: F10.230 Alcohol dependence with withdrawal, uncomplicated (principal); F17.213 Nicotine dependence, cigarettes, with withdrawal; F19.24 Other psychoactive substance dependence with psychoactive substance-induced mood disorder; J45.22 Mild intermittent asthma with status asthmaticus; B18.2 Chronic viral hepatitis C; H54.40 Blindness, one eye, unspecified eye; I10 Essential (primary) hypertension; Z86.69 Personal history of other diseases of the nervous system and sense organs; Z91.5 Personal history of self-harm
CPT/HCPCS: 36415; 80053; 81003; 85027; 86593; 93005; 93010

== ENCOUNTER 2018-05-16 14:19 | Inpatient (IN) | payer OTHER ==
--- NOTE | 2018-05-16 12:59 | HP ---
[facility] Rehab Assess/Revision - Admission History Admitted to Rehab from: [facility] Date of Admission to Rehab: 05/16/18 - Findings Detox History & Physical reviewed: Yes Concur with findings: Yes Comments/Additional Findings: transferred from detox to rehab admission as per protocol Inpatient Rehab Admission - Initial Determination Are CD services needed?: Yes Free of communicable disease: Yes Not in need of hospitalization: Yes - Rehab Admission Criteria Previous failed treatment: Yes Poor recovery environment: Yes Comorbidities: Yes Lacks judgement: No Patient is meeting Inpatient Rehab admission criteria:: Yes
[~2018-05-16 14:19] MED LIST: ACETAMINOPHEN 325 MG TABLET (FP) PO PRN; ALBUTEROL SO4 8 GM HFA INHALER IH PRN; IBUPROFEN 400 MG TABLET (FP) PO PRN; MAG HYDROX/AL HYDROX/SIMETH 30 ML UNIT-DOSE CUP PO PRN; MAGNESIUM CITRATE 300 ML BOTTLE PO PRN; MAGNESIUM HYDROX 2400MG/30ML ORAL SUSPENSION 30 ML CUP PO PRN; MENTHOL/PHENOL 1 EACH UD MM PRN; NICOTINE POLACRILEX 2 MG GUM BUC PRN; P-EPHED 60MG/TRIPROLIDI 2.5MG TABLET PO PRN; guaiFENesin/D-METHORPHAN HB 10 ML UNIT-DOSE CUPS PO PRN
[2018-05-16] MEDS: THIAMINE HCL 100 MG TABLET (FP) PO SCH (21:46)
[2018-05-16] MEDS ORDERED: MELATONIN 5 MG TABLETS PO PRN (22:00)
[2018-05-17] MEDS ORDERED: METHADONE HCL 10 MG TABLET ONE (04:05)
[2018-05-17] MEDS ORDERED: METHADONE HCL 40 MG DISPERSABLE TABLET ONE (04:05)
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
[2018-05-17] MEDS: METHADONE 80 MG, METHADONE 30 MG PO SCH (06:34)
[2018-05-17] MEDS ORDERED: METHADONE HCL 40 MG DISPERSABLE TABLET PO SCH (10:00)
[2018-05-17] MEDS: PRENATAL VITAMINS W/ FOLIC ACID TABLET (FP) PO SCH (10:18)
[2018-05-17] MEDS: LOPERAMIDE HCL 2 MG CAPSULE PO PRN ×2 (10:20→21:55)
[2018-05-17] MEDS: THIAMINE HCL 100 MG TABLET (FP) PO SCH (21:55)
[2018-05-17] MEDS: MELATONIN 5 MG TABLETS PO PRN (21:55)
[2018-05-18] MEDS ORDERED: METHADONE HCL 10 MG TABLET ONE (04:28)
[2018-05-18] MEDS ORDERED: METHADONE HCL 40 MG DISPERSABLE TABLET ONE (04:28)
[2018-05-18] MEDS: METHADONE 80 MG, METHADONE 30 MG PO SCH (06:16)
[2018-05-18] MEDS: LOPERAMIDE HCL 2 MG CAPSULE PO PRN ×2 (06:17→14:35)
[2018-05-18] MEDS: PRENATAL VITAMINS W/ FOLIC ACID TABLET (FP) PO SCH (10:15)
[2018-05-18] MEDS: THIAMINE HCL 100 MG TABLET (FP) PO SCH (21:40)
[2018-05-18] MEDS: hydrOXYzine PAMOATE 50 MG CAPSULE (FP) PO PRN (21:41)
[2018-05-19] MEDS ORDERED: METHADONE HCL 40 MG DISPERSABLE TABLET ONE (04:14)
[2018-05-19] MEDS ORDERED: METHADONE HCL 10 MG TABLET ONE (04:14)
[2018-05-19] MEDS: METHADONE 80 MG, METHADONE 30 MG PO SCH (06:33)
[2018-05-19] MEDS: LOPERAMIDE HCL 2 MG CAPSULE PO PRN ×2 (06:34→22:14)
[2018-05-19] MEDS: PRENATAL VITAMINS W/ FOLIC ACID TABLET (FP) PO SCH (10:22)
[2018-05-19] MEDS: hydrOXYzine PAMOATE 50 MG CAPSULE (FP) PO PRN (22:14)
[2018-05-19] MEDS: MELATONIN 5 MG TABLETS PO PRN (22:14)
[2018-05-19] MEDS: THIAMINE HCL 100 MG TABLET (FP) PO SCH (22:14)
[2018-05-20] MEDS ORDERED: METHADONE HCL 40 MG DISPERSABLE TABLET ONE (02:46)
[2018-05-20] MEDS ORDERED: METHADONE HCL 10 MG TABLET ONE (02:46)
[2018-05-20] MEDS: METHADONE 80 MG, METHADONE 30 MG PO SCH (06:17)
[2018-05-20] MEDS: PRENATAL VITAMINS W/ FOLIC ACID TABLET (FP) PO SCH (10:16)
[2018-05-20] MEDS: LOPERAMIDE HCL 2 MG CAPSULE PO PRN (10:18)
[2018-05-20] MEDS: MELATONIN 5 MG TABLETS PO PRN (22:42)
[2018-05-20] MEDS: THIAMINE HCL 100 MG TABLET (FP) PO SCH (22:42)
[2018-05-21] MEDS ORDERED: METHADONE HCL 40 MG DISPERSABLE TABLET ONE (02:42)
[2018-05-21] MEDS ORDERED: METHADONE HCL 10 MG TABLET ONE (02:42)
[2018-05-21] MEDS: METHADONE 80 MG, METHADONE 30 MG PO SCH (06:09)
[2018-05-21] MEDS: PRENATAL VITAMINS W/ FOLIC ACID TABLET (FP) PO SCH (09:55)
[2018-05-21] MEDS: NICOTINE 14 MG/24 HOURS TOPICAL PATCH TD PRN (09:56)
[2018-05-21] MEDS: THIAMINE HCL 100 MG TABLET (FP) PO SCH (21:53)
[2018-05-21] MEDS: MELATONIN 5 MG TABLETS PO PRN (21:53)
[2018-05-22] MEDS ORDERED: METHADONE HCL 10 MG TABLET ONE (04:02)
[2018-05-22] MEDS ORDERED: METHADONE HCL 40 MG DISPERSABLE TABLET ONE (04:03)
[2018-05-22] MEDS: METHADONE 80 MG, METHADONE 30 MG PO SCH (06:16)
[2018-05-22] MEDS: LOPERAMIDE HCL 2 MG CAPSULE PO PRN ×2 (06:17→14:21)
[2018-05-22] MEDS: PRENATAL VITAMINS W/ FOLIC ACID TABLET (FP) PO SCH (10:51)
[2018-05-22] MEDS: THIAMINE HCL 100 MG TABLET (FP) PO SCH (21:58)
[2018-05-22] MEDS: MELATONIN 5 MG TABLETS PO PRN (21:58)
[2018-05-23] MEDS ORDERED: METHADONE 80 MG, METHADONE (DETOX) 30 MG PO SCH (06:00)
[2018-05-23] MEDS ORDERED: METHADONE HCL 10 MG TABLET PO SCH (06:00)
[2018-05-23] MEDS ORDERED: METHADONE HCL 40 MG DISPERSABLE TABLET ONE (06:01)
[2018-05-23] MEDS ORDERED: METHADONE HCL 10 MG TABLET (FOR DETOX USE ONLY) ONE (06:01)
[2018-05-23] MEDS: PRENATAL VITAMINS W/ FOLIC ACID TABLET (FP) PO SCH (10:17)
[2018-05-23] MEDS: MELATONIN 5 MG TABLETS PO PRN (21:49)
[2018-05-23] MEDS: THIAMINE HCL 100 MG TABLET (FP) PO SCH (21:49)
[2018-05-24] MEDS ORDERED: METHADONE HCL 10 MG TABLET ONE (04:05)
[2018-05-24] MEDS ORDERED: METHADONE HCL 40 MG DISPERSABLE TABLET ONE (04:05)
[2018-05-24] MEDS: METHADONE 80 MG, METHADONE 30 MG PO SCH (06:10)
[2018-05-24] MEDS: PRENATAL VITAMINS W/ FOLIC ACID TABLET (FP) PO SCH (10:20)
[2018-05-24] MEDS: THIAMINE HCL 100 MG TABLET (FP) PO SCH (21:55)
[2018-05-24] MEDS: MELATONIN 5 MG TABLETS PO PRN (21:55)
[2018-05-25] MEDS ORDERED: METHADONE HCL 40 MG DISPERSABLE TABLET ONE (03:24)
[2018-05-25] MEDS ORDERED: METHADONE HCL 10 MG TABLET ONE (03:24)
[2018-05-25] MEDS: METHADONE 80 MG, METHADONE 30 MG PO SCH (06:22)
[2018-05-25] MEDS: PRENATAL VITAMINS W/ FOLIC ACID TABLET (FP) PO SCH (10:06)
[2018-05-25] MEDS: NICOTINE 14 MG/24 HOURS TOPICAL PATCH TD PRN (10:06)
[2018-05-25] MEDS: THIAMINE HCL 100 MG TABLET (FP) PO SCH (21:45)
[2018-05-25] MEDS: MELATONIN 5 MG TABLETS PO PRN (21:45)
[2018-05-26] MEDS ORDERED: METHADONE HCL 10 MG TABLET ONE (03:09)
[2018-05-26] MEDS ORDERED: METHADONE HCL 40 MG DISPERSABLE TABLET ONE (03:09)
[2018-05-26] MEDS: METHADONE 80 MG, METHADONE 30 MG PO SCH (06:18)
[2018-05-26] MEDS: NICOTINE 14 MG/24 HOURS TOPICAL PATCH TD PRN (10:25)
[2018-05-26] MEDS: PRENATAL VITAMINS W/ FOLIC ACID TABLET (FP) PO SCH (10:25)
[2018-05-26] MEDS: THIAMINE HCL 100 MG TABLET (FP) PO SCH (21:31)
[2018-05-26] MEDS: MELATONIN 5 MG TABLETS PO PRN (21:32)
[2018-05-27] MEDS ORDERED: METHADONE HCL 10 MG TABLET ONE (04:05)
[2018-05-27] MEDS ORDERED: METHADONE HCL 40 MG DISPERSABLE TABLET ONE (04:06)
[2018-05-27] MEDS: METHADONE 80 MG, METHADONE 30 MG PO SCH (05:59)
[2018-05-27] MEDS: PRENATAL VITAMINS W/ FOLIC ACID TABLET (FP) PO SCH (10:22)
[2018-05-27] MEDS: THIAMINE HCL 100 MG TABLET (FP) PO SCH (21:56)
[2018-05-27] MEDS: hydrOXYzine PAMOATE 50 MG CAPSULE (FP) PO PRN (21:56)
[2018-05-27] MEDS: MELATONIN 5 MG TABLETS PO PRN (21:56)
[2018-05-28] MEDS ORDERED: METHADONE HCL 10 MG TABLET ONE (03:53)
[2018-05-28] MEDS ORDERED: METHADONE HCL 40 MG DISPERSABLE TABLET ONE (03:53)
[2018-05-28] MEDS: METHADONE 80 MG, METHADONE 30 MG PO SCH (06:35)
[2018-05-28] MEDS: PRENATAL VITAMINS W/ FOLIC ACID TABLET (FP) PO SCH (10:35)
[2018-05-28] MEDS: hydrOXYzine PAMOATE 50 MG CAPSULE (FP) PO PRN (21:13)
[2018-05-28] MEDS: THIAMINE HCL 100 MG TABLET (FP) PO SCH (21:13)
[2018-05-28] MEDS: MELATONIN 5 MG TABLETS PO PRN (21:14)
[2018-05-29] MEDS ORDERED: METHADONE HCL 40 MG DISPERSABLE TABLET ONE (05:51)
[2018-05-29] MEDS ORDERED: METHADONE HCL 10 MG TABLET ONE (05:51)
[2018-05-29] MEDS: METHADONE 80 MG, METHADONE 30 MG PO SCH (06:33)
[2018-05-29 07:57] VITALS: BP 129/90; PULSE 66; TEMP 97.3
--- NOTE | 2018-05-29 10:00 | PN ---
[facility] Progress Note Note: Patient completed this program today.He has met his treatment plan and will continue to address his issues on outpatient basis.Supportive therapy provided focusing on relapse prevention.Patient is stable for discharge today.
[2018-05-29] MEDS: PRENATAL VITAMINS W/ FOLIC ACID TABLET (FP) PO SCH (10:11)
[2018-05-30] MEDS ORDERED: METHADONE HCL 10 MG TABLET PO SCH (06:00)
[2018-05-30] MEDS ORDERED: METHADONE 80 MG, METHADONE 30 MG PO SCH (06:00)
== END 2018-05-29 10:38 | disposition home or self-care (01) | DRG 772 ==
LOC: YASAS 14:19 → Y3W 14:22
PROVIDERS: ADMIT Psychiatry & Neurology Psychiatry; ATTEND Psychiatry & Neurology Psychiatry
PROC: HZ42ZZZ Group Counseling for Substance Abuse Treatment, Cognitive-Behavioral (ICD-10-PCS; principal; 2018-05-16)
DX: F10.20 Alcohol dependence, uncomplicated (principal); F11.20 Opioid dependence, uncomplicated; F17.213 Nicotine dependence, cigarettes, with withdrawal; F19.24 Other psychoactive substance dependence with psychoactive substance-induced mood disorder; F19.282 Other psychoactive substance dependence with psychoactive substance-induced sleep disorder; F32.5 Major depressive disorder, single episode, in full remission; I10 Essential (primary) hypertension; J45.22 Mild intermittent asthma with status asthmaticus; B18.2 Chronic viral hepatitis C; H54.61 Unqualified visual loss, right eye, normal vision left eye; Z86.69 Personal history of other diseases of the nervous system and sense organs; Z91.5 Personal history of self-harm

== ENCOUNTER 2019-03-13 22:10 | Inpatient (IN) | payer OTHER ==
[2019-03-13 22:43] VITALS: BMI 20.6
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
[2019-03-14] MEDS ORDERED: MAGNESIUM HYDROX 2400MG/30ML ORAL SUSPENSION 30 ML CUP PO PRN (01:59)
[2019-03-14] MEDS ORDERED: NICOTINE POLACRILEX 2 MG GUM BUC PRN (01:59)
[2019-03-14] MEDS ORDERED: MAG HYDROX/AL HYDROX/SIMETH 30 ML UNIT-DOSE CUP PO PRN (01:59)
[2019-03-14] MEDS ORDERED: MAGNESIUM CITRATE 300 ML BOTTLE PO PRN (01:59)
[2019-03-14] MEDS ORDERED: chlordiazePOXIDE HCL 25 MG CAPSULE PO PRN (01:59)
[2019-03-14] MEDS ORDERED: ACETAMINOPHEN 325 MG TABLET (FP) PO PRN ×2 (01:59)
[2019-03-14] MEDS ORDERED: MENTHOL/PHENOL 1 EACH UD MM PRN (01:59)
[2019-03-14] MEDS ORDERED: hydrOXYzine PAMOATE 25 MG CAPSULE (FP) PO PRN (01:59)
[2019-03-14] MEDS ORDERED: BISMUTH SUBSALICYLATE 524 MG/30 ML UD PO PRN (01:59)
[2019-03-14] MEDS ORDERED: ALBUTEROL SO4 8 GM HFA INHALER IH PRN (02:01)
[2019-03-14] MEDS: chlordiazePOXIDE HCL 25 MG CAPSULE PO SCH ×4 (06:04→22:17)
[2019-03-14] MEDS ORDERED: METHADONE HCL 10 MG TABLET PO ONE (09:02)
[2019-03-14] MEDS ORDERED: METHADONE 80 MG, METHADONE 30 MG PO ONE (09:20)
[2019-03-14] MEDS ORDERED: METHADONE HCL 10 MG TABLET ONE (09:22)
[2019-03-14] MEDS ORDERED: METHADONE HCL 40 MG DISPERSABLE TABLET ONE (09:22)
[2019-03-14] MEDS: PRENATAL VITAMINS W/ FOLIC ACID TABLET (FP) PO SCH (10:17)
[2019-03-14] MEDS: NICOTINE 14 MG/24 HOURS TOPICAL PATCH TD SCH (10:18)
--- NOTE | 2019-03-14 10:51 | PN ---
S CIWA - CIWA Score Nausea/Vomitin-No Nausea/No Vomiting Muscle Tremors: 3 Anxiety: 3 Agitation: 3 Paroxysmal Sweats: 3 Orientation: 0-Oriented Tacttile Disturbances: 0-None Auditory Disturbances: 0-None Visual Disturbances: 0-None Headache: 0-None Present CIWA-Ar Total Score: 12 BHS Progress Note (SOAP) Subjective: sweats chills body aches interrupted sleep tired shakes poor appetite Objective: 03/14/19 10:50 Vital Signs Temperature 98.2 F 03/14/19 09:41 Pulse Rate 72 03/14/19 09:41 Respiratory Rate 16 03/14/19 09:41 Blood Pressure 108/76 03/14/19 09:41 O2 Sat by Pulse Oximetry (%) pending labs aaox3 lying in bed no acute distress Assessment: 03/14/19 10:51 withdrawal sx Plan: continue detox increase fluids ensure bid
[2019-03-14 12:31] LABS: HEMATOCRIT 38.9 % (35.4-49); MCH 34.4 pg (25.7-33.7); MCHC 33.5 g/dl (32.0-35.9); MEAN CELL VOLUME 102.8 fl (80-96); MEAN PLT VOLUME 9.7 fl (7.5-11.1); PLATELET COUNT 156 K/MM3 (134-434); RBC 3.79 M/mm3 (4.00-5.60); RDW 13.2 % (11.9-15.9); WHITE BLOOD COUNT 4.8 K/mm3 (4.0-10.0)
[2019-03-14 12:40] LABS: ALBUMIN 3.6 g/dl (3.4-5.0); BILIRUBIN,TOTAL 0.5 mg/dL (0.2-1); BLOOD UREA NITROGEN 12.7 mg/dL (7-18); CALCIUM 8.9 mg/dL (8.5-10.1); CREATININE 0.7 mg/dL (0.55-1.3); POTASSIUM 4.5 mmol/L (3.5-5.1); TOT PROT 7.3 g/dl (6.4-8.2)
--- NOTE | 2019-03-14 13:29 | EKG ---
Test Reason : Blood Pressure : / mmHG Vent. Rate : 064 BPM Atrial Rate : 064 BPM P-R Int : 132 ms QRS Dur : 086 ms QT Int : 402 ms P-R-T Axes : 063 066 042 degrees QTc Int : 414 ms NORMAL SINUS RHYTHM NORMAL ECG WHEN COMPARED WITH ECG OF 13-MAY-2018 00:42, NO SIGNIFICANT CHANGE WAS FOUND Confirmed by JOCELYN CHI MD ([id number]) on 03/14/2019 1:28:50 PM Referred By: Confirmed By:JOCELYN CHI MD
[2019-03-14] MEDS: THIAMINE HCL 100 MG TABLET (FP) PO SCH (22:17)
[2019-03-15] MEDS ORDERED: METHADONE HCL 40 MG DISPERSABLE TABLET PO SCH (06:00)
[2019-03-15] MEDS: chlordiazePOXIDE HCL 25 MG CAPSULE PO SCH ×4 (06:11→22:34)
[2019-03-15] MEDS ORDERED: METHADONE HCL 10 MG TABLET ONE (06:12)
[2019-03-15] MEDS: METHADONE 80 MG, METHADONE 30 MG PO SCH (06:12)
[2019-03-15] MEDS ORDERED: METHADONE HCL 40 MG DISPERSABLE TABLET ONE (06:12)
[2019-03-15] MEDS: PRENATAL VITAMINS W/ FOLIC ACID TABLET (FP) PO SCH (10:59)
[2019-03-15] MEDS: NICOTINE 14 MG/24 HOURS TOPICAL PATCH TD SCH (11:00)
--- NOTE | 2019-03-15 12:59 | PN ---
S CIWA - CIWA Score Nausea/Vomitin-No Nausea/No Vomiting Muscle Tremors: 2 Anxiety: 2 Agitation: 2 Paroxysmal Sweats: 3 Orientation: 0-Oriented Tacttile Disturbances: 0-None Auditory Disturbances: 0-None Visual Disturbances: 0-None Headache: 0-None Present CIWA-Ar Total Score: 9 BHS Progress Note (SOAP) Subjective: shakes sweats agitation interrupted sleep Objective: 03/15/19 12:57 Vital Signs Temperature 97.9 F 03/15/19 09:33 Pulse Rate 57 L 03/15/19 09:33 Respiratory Rate 16 03/15/19 09:33 Blood Pressure 128/76 03/15/19 09:33 O2 Sat by Pulse Oximetry (%) Laboratory Tests 03/14/19 03/14/19 03/14/19 09:00 09:00 09:00 WBC 4.8 RBC 3.79 L Hgb 13.0 Hct 38.9 MCV 102.8 H MCH 34.4 H MCHC 33.5 RDW 13.2 Plt Count 156 D MPV 9.7 D Sodium 142 Potassium 4.5 Chloride 106 Carbon Dioxide 27 Anion Gap 8 BUN 12.7 Creatinine 0.7 Est GFR (CKD-EPI)AfAm 133.02 Est GFR (CKD-EPI)NonAf 114.77 Random Glucose 66 L Calcium 8.9 Total Bilirubin 0.5 AST 147 H ALT 129 H Alkaline Phosphatase 142 H Total Protein 7.3 Albumin 3.6 RPR Titer Nonreactive labs noted elevated ast/alt d/c tylenol aaox3 ambulating no acute distress repeat labs Assessment: 03/15/19 12:58 withdrawal sx Plan: continue detox increase fluids repeat cbc
[2019-03-15] MEDS: THIAMINE HCL 100 MG TABLET (FP) PO SCH (22:34)
[2019-03-15] MEDS: MELATONIN 5 MG TABLETS PO PRN (22:34)
[2019-03-16] MEDS ORDERED: chlordiazePOXIDE HCL 10 MG CAPSULE PO PRN
[2019-03-16] MEDS ORDERED: METHADONE HCL 10 MG TABLET ONE (04:31)
[2019-03-16] MEDS ORDERED: METHADONE HCL 40 MG DISPERSABLE TABLET ONE (04:31)
[2019-03-16] MEDS: METHADONE 80 MG, METHADONE 30 MG PO SCH (05:22)
[2019-03-16] MEDS: chlordiazePOXIDE HCL 10 MG CAPSULE PO SCH ×4 (05:23→22:15)
[2019-03-16] MEDS: NICOTINE 14 MG/24 HOURS TOPICAL PATCH TD SCH (10:28)
[2019-03-16] MEDS: PRENATAL VITAMINS W/ FOLIC ACID TABLET (FP) PO SCH (10:28)
[2019-03-16 11:34] LABS: BASO % 0.7 % (0-2.0); EOS % 1.3 % (0-4.5); HEMATOCRIT 43.5 % (35.4-49); HEMOGLOBIN 14.7 GM/dL (11.7-16.9); MCH 34.7 pg (25.7-33.7); MCHC 33.9 g/dl (32.0-35.9); MEAN CELL VOLUME 102.3 fl (80-96); MEAN PLT VOLUME 9.9 fl (7.5-11.1); MONO % 19.5 % (3.8-10.2); NEUT % 48.5 % (42.8-82.8); PLATELET COUNT 158 K/MM3 (134-434); RBC 4.25 M/mm3 (4.00-5.60); WHITE BLOOD COUNT 6.1 K/mm3 (4.0-10.0)
--- NOTE | 2019-03-16 13:44 | PN ---
S CIWA - CIWA Score Nausea/Vomitin-No Nausea/No Vomiting Muscle Tremors: 2 Anxiety: 2 Agitation: 2 Paroxysmal Sweats: 2 Orientation: 0-Oriented Tacttile Disturbances: 0-None Auditory Disturbances: 0-None Visual Disturbances: 0-None Headache: 0-None Present CIWA-Ar Total Score: 8 BHS Progress Note (SOAP) Subjective: sweats diarrhea interrupted sleep Objective: 03/16/19 13:40 Vital Signs Temperature 97.3 F L 03/16/19 09:39 Pulse Rate 65 03/16/19 09:39 Respiratory Rate 18 03/16/19 09:39 Blood Pressure 125/88 03/16/19 09:39 O2 Sat by Pulse Oximetry (%) Laboratory Tests 03/14/19 03/14/19 03/14/19 09:00 09:00 09:00 WBC 4.8 RBC 3.79 L Hgb 13.0 Hct 38.9 MCV 102.8 H MCH 34.4 H MCHC 33.5 RDW 13.2 Plt Count 156 D MPV 9.7 D Absolute Neuts (auto) Neutrophils % Lymphocytes % Monocytes % Eosinophils % Basophils % Nucleated RBC % Sodium 142 Potassium 4.5 Chloride 106 Carbon Dioxide 27 Anion Gap 8 BUN 12.7 Creatinine 0.7 Est GFR (CKD-EPI)AfAm 133.02 Est GFR (CKD-EPI)NonAf 114.77 Random Glucose 66 L Calcium 8.9 Total Bilirubin 0.5 AST 147 H ALT 129 H Alkaline Phosphatase 142 H Total Protein 7.3 Albumin 3.6 RPR Titer Nonreactive 03/16/19 08:37 WBC 6.1 RBC 4.25 Hgb 14.7 Hct 43.5 MCV 102.3 H MCH 34.7 H MCHC 33.9 RDW 13.0 Plt Count 158 MPV 9.9 Absolute Neuts (auto) 2.9 Neutrophils % 48.5 Lymphocytes % 30.0 Monocytes % 19.5 H Eosinophils % 1.3 Basophils % 0.7 Nucleated RBC % 0 Sodium Potassium Chloride Carbon Dioxide Anion Gap BUN Creatinine Est GFR (CKD-EPI)AfAm Est GFR (CKD-EPI)NonAf Random Glucose Calcium Total Bilirubin AST ALT Alkaline Phosphatase Total Protein Albumin RPR Titer labs noted aaox3 ambulating no acute distress Assessment: 03/16/19 13:44 mild withdrawals Plan: continue detox increase fluids pepto for diarrhea
[2019-03-16] MEDS: THIAMINE HCL 100 MG TABLET (FP) PO SCH (22:15)
[2019-03-16] MEDS: MELATONIN 5 MG TABLETS PO PRN (22:15)
[2019-03-17] MEDS ORDERED: METHADONE HCL 10 MG TABLET ONE (05:07)
[2019-03-17] MEDS ORDERED: METHADONE HCL 40 MG DISPERSABLE TABLET ONE (05:08)
[2019-03-17] MEDS: chlordiazePOXIDE HCL 10 MG CAPSULE PO SCH ×2 (06:12→17:50)
[2019-03-17] MEDS: METHADONE 80 MG, METHADONE 30 MG PO SCH (06:12)
[2019-03-17] MEDS: NICOTINE 14 MG/24 HOURS TOPICAL PATCH TD SCH (10:28)
[2019-03-17] MEDS: METHOCARBAMOL 500 MG TABLET PO PRN ×2 (10:28→17:52)
[2019-03-17] MEDS: IBUPROFEN 400 MG TABLET (FP) PO PRN ×2 (10:28→22:25)
[2019-03-17] MEDS: PRENATAL VITAMINS W/ FOLIC ACID TABLET (FP) PO SCH (10:28)
--- NOTE | 2019-03-17 12:54 | PN ---
S CIWA - CIWA Score Nausea/Vomitin-No Nausea/No Vomiting Muscle Tremors: None Anxiety: 2 Agitation: 0-Normal Activity Paroxysmal Sweats: 3 Orientation: 0-Oriented Tacttile Disturbances: 0-None Auditory Disturbances: 0-None Visual Disturbances: 0-None Headache: 2-Mild CIWA-Ar Total Score: 7 BHS Progress Note (SOAP) Subjective: c/o interrupted sleep, anxiety, and headache. Objective: 03/17/19 12:53 Vital Signs 03/17/19 03/17/19 07:22 09:25 Temperature 97.5 F L 97.5 F L Pulse Rate 58 L 84 Respiratory 18 18 Rate Blood Pressure 121/86 138/88 Lab Results WBC 6.1 K/mm3 (4.0-10.0) 03/16/19 08:37 RBC 4.25 M/mm3 (4.00-5.60) 03/16/19 08:37 Hgb 14.7 GM/dL (11.7-16.9) 03/16/19 08:37 Hct 43.5 % (35.4-49) 03/16/19 08:37 MCV 102.3 fl (80-96) H 03/16/19 08:37 MCHC 33.9 g/dl (32.0-35.9) 03/16/19 08:37 RDW 13.0 % (11.9-15.9) 03/16/19 08:37 Plt Count 158 K/MM3 (134-434) 03/16/19 08:37 Sodium 142 mmol/L (136-145) 03/14/19 09:00 Potassium 4.5 mmol/L (3.5-5.1) 03/14/19 09:00 Chloride 106 mmol/L (98-107) 03/14/19 09:00 Carbon Dioxide 27 mmol/L (21-32) 03/14/19 09:00 Anion Gap 8 MMOL/L (8-16) 03/14/19 09:00 BUN 12.7 mg/dL (7-18) 03/14/19 09:00 Creatinine 0.7 mg/dL (0.55-1.3) 03/14/19 09:00 Random Glucose 66 mg/dL (74-106) L 03/14/19 09:00 Calcium 8.9 mg/dL (8.5-10.1) 03/14/19 09:00 Labs noted. Assessment: 03/17/19 12:53 AOX3, in no acute respiratory distress. Full ROM, ambulating in the unit. Withdrawal symptoms. Plan: continue detox.
[2019-03-17] MEDS: THIAMINE HCL 100 MG TABLET (FP) PO SCH (22:23)
[2019-03-17] MEDS: MELATONIN 5 MG TABLETS PO PRN (22:24)
[2019-03-18] MEDS ORDERED: METHADONE HCL 40 MG DISPERSABLE TABLET ONE (04:54)
[2019-03-18] MEDS ORDERED: METHADONE HCL 10 MG TABLET ONE (04:54)
[2019-03-18] MEDS ORDERED: chlordiazePOXIDE HCL 10 MG CAPSULE PO ONE (05:00)
[2019-03-18] MEDS: METHADONE 80 MG, METHADONE 30 MG PO SCH (05:48)
[2019-03-18 09:55] VITALS: BP 133/74; PULSE 67; TEMP 97.9
[2019-03-18] MEDS: PRENATAL VITAMINS W/ FOLIC ACID TABLET (FP) PO SCH (10:27)
[2019-03-18] MEDS: NICOTINE 14 MG/24 HOURS TOPICAL PATCH TD SCH (10:27)
--- NOTE | 2019-03-18 13:29 | DS ---
[facility] Detox Discharge Summary Admission Date: 03/14/19 Discharge Date: 03/18/19 - History Present History: Alcohol Dependence, MMTP - Physical Exam Results Vital Signs: Vital Signs Temperature 97.9 F 03/18/19 09:55 Pulse Rate 67 03/18/19 09:55 Respiratory Rate 17 03/18/19 09:55 Blood Pressure 133/74 03/18/19 09:55 O2 Sat by Pulse Oximetry (%) Pertinent Admission Physical Exam Findings: ROS denies cp, sob and dizziness. PE alert and oriented x 3 skin warm and dry +perrla, eoms intact bl car s1s2 resp cta bl ext full rom, no tremors - Treatment Hospital Course: Detox Protocol Followed, Detoxed Safely, Responded well, Discharged Condition Good, Rehab Referral Accepted Patient has Accepted a Rehab Referral to: F/U with [facility]ANY[facility] in am for rehab - Medication Discharge Medications: Ambulatory Orders Methadone [Dolophine -] 110 mg PO DAILY 05/14/18 Albuterol Sulfate Inhaler - [Ventolin HFA Inhaler -] 2 inh PO Q4H PRN #1 inhaler 03/17/19 - AMA Did Patient Leave Against Medical Advice: No
== END 2019-03-18 10:35 | disposition home or self-care (01) | DRG 773 ==
LOC: YASAS 22:10 → Y6N 03-14 02:09
PROVIDERS: ADMIT Surgery; ATTEND Surgery
PROC: HZ2ZZZZ Detoxification Services for Substance Abuse Treatment (ICD-10-PCS; principal; 2019-03-14)
DX: F10.230 Alcohol dependence with withdrawal, uncomplicated (principal); F11.20 Opioid dependence, uncomplicated; F17.210 Nicotine dependence, cigarettes, uncomplicated; R74.0 Nonspecific elevation of levels of transaminase and lactic acid dehydrogenase [LDH]; J45.909 Unspecified asthma, uncomplicated; H54.40 Blindness, one eye, unspecified eye; B18.2 Chronic viral hepatitis C; Z86.69 Personal history of other diseases of the nervous system and sense organs
CPT/HCPCS: 36415; 80053; 85025; 85027; 86480; 86593; 93005; 93010

== ENCOUNTER 2019-03-19 23:18 | Inpatient (IN) | payer OTHER ==
[2019-03-20 00:25] VITALS: BMI 21.9
[2019-03-20] MEDS ORDERED: MENTHOL/PHENOL 1 EACH UD MM PRN (02:45)
[2019-03-20] MEDS ORDERED: MAGNESIUM CITRATE 300 ML BOTTLE PO PRN (02:45)
[2019-03-20] MEDS ORDERED: LOPERAMIDE HCL 2 MG CAPSULE PO PRN (02:45)
[2019-03-20] MEDS ORDERED: NICOTINE POLACRILEX 2 MG GUM BUC PRN (02:45)
[2019-03-20] MEDS ORDERED: ACETAMINOPHEN 325 MG TABLET (FP) PO PRN (02:45)
[2019-03-20] MEDS ORDERED: IBUPROFEN 400 MG TABLET (FP) PO PRN (02:45)
[2019-03-20] MEDS ORDERED: guaiFENesin 200 MG/10 ML 10 ML UNIT-DOSE CUPS PO PRN (02:45)
[2019-03-20] MEDS ORDERED: P-EPHED 60MG/TRIPROLIDI 2.5MG TABLET PO PRN (02:45)
[2019-03-20] MEDS ORDERED: MAGNESIUM HYDROX 2400MG/30ML ORAL SUSPENSION 30 ML CUP PO PRN (02:45)
--- NOTE | 2019-03-20 02:45 | HP ---
[facility] Rehab Assess/Revision - Admission History Admitted to Rehab from: [facility] - Vital signs Vital Signs: Vital Signs Period Temp Pulse Resp BP Sys/[place] Pulse Ox Last 24 Hr 97.1 F 88 16 122/73 - Findings Detox History & Physical reviewed: Yes Concur with findings: Yes Comments/Additional Findings: S/P ALCOHOL DETOX FROM 03/14 TO 03/18/2019. RETURNS FOR INAPTIENT REHAB. Inpatient Rehab Admission - Rehab Decision to Admit Inpatient rehab admission?: Yes - Initial Determination Are CD services needed?: Yes Free of communicable disease: Yes Not in need of hospitalization: Yes - Rehab Admission Criteria Previous failed treatment: Yes Poor recovery environment: Yes Comorbidities: Yes Lacks judgement: No Patient is meeting Inpatient Rehab admission criteria:: Yes
[2019-03-20] MEDS ORDERED: ALBUTEROL SO4 8 GM HFA INHALER IH PRN (02:47)
[2019-03-20] MEDS ORDERED: METHADONE HCL 10 MG TABLET ONE (07:42)
[2019-03-20] MEDS ORDERED: METHADONE HCL 40 MG DISPERSABLE TABLET ONE (07:42)
[2019-03-20] MEDS: METHADONE 80 MG, METHADONE 30 MG PO SCH (07:43)
[2019-03-20] MEDS ORDERED: METHADONE HCL 10 MG TABLET PO SCH (07:45)
[2019-03-20] MEDS: PRENATAL VITAMINS W/ FOLIC ACID TABLET (FP) PO SCH (10:36)
[2019-03-20] MEDS: NICOTINE 14 MG/24 HOURS TOPICAL PATCH TD SCH (10:36)
[2019-03-20] MEDS: THIAMINE HCL 100 MG TABLET (FP) PO SCH (21:27)
[2019-03-20] MEDS ORDERED: MELATONIN 5 MG TABLETS PO PRN (22:00)
[2019-03-21] MEDS ORDERED: METHADONE HCL 10 MG TABLET ONE (05:39)
[2019-03-21] MEDS ORDERED: METHADONE HCL 40 MG DISPERSABLE TABLET ONE (05:40)
[2019-03-21] MEDS: METHADONE 80 MG, METHADONE 30 MG PO SCH (06:20)
[2019-03-21] MEDS: NICOTINE 14 MG/24 HOURS TOPICAL PATCH TD SCH (10:18)
[2019-03-21] MEDS: PRENATAL VITAMINS W/ FOLIC ACID TABLET (FP) PO SCH (10:18)
[2019-03-21] MEDS ORDERED: cloNIDine HCL 0.1 MG TABLET PO ONE (15:05)
--- NOTE | 2019-03-21 15:16 | PN ---
[facility] Progress Note (SOAP) Subjective: Reports that he is still experiencing withdrawal symptoms. Reports that benadryl helped him in detox. Reports difficulty sleeping Objective: Vital Signs Period Temp Pulse Resp BP Sys/[place] Pulse Ox Last 24 Hr 97.6 F 58 16-18 137/74 03/21/19 15:13 General: no apparent distress HEENTM: normocephalic, PERRLA, NECK; supple Lungs: clear Heart: s1 s2 audible abd: soft, non-tender, +BS 03/21/19 15:14 Assessment: WD from ETOH 03/21/19 15:15 Plan: Ordered benadryl, encouraged patient to increase hydration, increased melatonin , will place request for psych consult.
[2019-03-21] MEDS: THIAMINE HCL 100 MG TABLET (FP) PO SCH (21:24)
[2019-03-21] MEDS: MELATONIN 5 MG TABLETS PO PRN (21:24)
[2019-03-21] MEDS: diphenhydrAMINE HCL 25 MG CAPSULE (FP) PO PRN (21:25)
[2019-03-22] MEDS ORDERED: METHADONE HCL 10 MG TABLET ONE (04:00)
[2019-03-22] MEDS ORDERED: METHADONE HCL 40 MG DISPERSABLE TABLET ONE (04:00)
[2019-03-22] MEDS: METHADONE 80 MG, METHADONE 30 MG PO SCH (06:01)
[2019-03-22] MEDS: diphenhydrAMINE HCL 25 MG CAPSULE (FP) PO PRN (06:04)
[2019-03-22] MEDS: MAG HYDROX/AL HYDROX/SIMETH 30 ML UNIT-DOSE CUP PO PRN (09:46)
[2019-03-22] MEDS: PRENATAL VITAMINS W/ FOLIC ACID TABLET (FP) PO SCH (09:46)
[2019-03-22] MEDS: NICOTINE 14 MG/24 HOURS TOPICAL PATCH TD SCH (09:46)
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
[2019-03-22] MEDS: THIAMINE HCL 100 MG TABLET (FP) PO SCH (21:07)
[2019-03-22] MEDS ORDERED: SUVOREXANT 10 MG TABLET PO PRN (22:00)
[2019-03-23] MEDS ORDERED: METHADONE HCL 10 MG TABLET ONE (05:39)
[2019-03-23] MEDS ORDERED: METHADONE HCL 40 MG DISPERSABLE TABLET ONE (05:39)
[2019-03-23] MEDS: METHADONE 80 MG, METHADONE 30 MG PO SCH (06:30)
[2019-03-23] MEDS: PRENATAL VITAMINS W/ FOLIC ACID TABLET (FP) PO SCH (09:57)
[2019-03-23] MEDS: NICOTINE 14 MG/24 HOURS TOPICAL PATCH TD SCH (09:57)
[2019-03-23] MEDS: MAG HYDROX/AL HYDROX/SIMETH 30 ML UNIT-DOSE CUP PO PRN (09:57)
[2019-03-23] MEDS: MELATONIN 5 MG TABLETS PO PRN (21:11)
[2019-03-23] MEDS: THIAMINE HCL 100 MG TABLET (FP) PO SCH (21:11)
[2019-03-24] MEDS ORDERED: METHADONE HCL 10 MG TABLET ONE (06:03)
[2019-03-24] MEDS ORDERED: METHADONE HCL 40 MG DISPERSABLE TABLET ONE (06:03)
[2019-03-24] MEDS: METHADONE 80 MG, METHADONE 30 MG PO SCH (06:22)
[2019-03-24] MEDS: NICOTINE 14 MG/24 HOURS TOPICAL PATCH TD SCH (09:32)
[2019-03-24] MEDS: PRENATAL VITAMINS W/ FOLIC ACID TABLET (FP) PO SCH (09:32)
[2019-03-24] MEDS: THIAMINE HCL 100 MG TABLET (FP) PO SCH (21:23)
[2019-03-24] MEDS: MELATONIN 5 MG TABLETS PO PRN (21:24)
[2019-03-25] MEDS ORDERED: METHADONE HCL 40 MG DISPERSABLE TABLET ONE (05:57)
[2019-03-25] MEDS ORDERED: METHADONE HCL 10 MG TABLET ONE (05:57)
[2019-03-25] MEDS: METHADONE 80 MG, METHADONE 30 MG PO SCH (06:22)
[2019-03-25] MEDS: NICOTINE 14 MG/24 HOURS TOPICAL PATCH TD SCH (09:12)
[2019-03-25] MEDS: PRENATAL VITAMINS W/ FOLIC ACID TABLET (FP) PO SCH (09:12)
[2019-03-25] MEDS ORDERED: SUVOREXANT 10 MG TABLET PO PRN (14:52)
[2019-03-25] MEDS: THIAMINE HCL 100 MG TABLET (FP) PO SCH (21:24)
[2019-03-25] MEDS: MELATONIN 5 MG TABLETS PO PRN (21:24)
[2019-03-26] MEDS ORDERED: METHADONE HCL 10 MG TABLET ONE (06:00)
[2019-03-26] MEDS ORDERED: METHADONE HCL 40 MG DISPERSABLE TABLET ONE (06:01)
[2019-03-26] MEDS: METHADONE 80 MG, METHADONE 30 MG PO SCH (06:15)
[2019-03-26] MEDS: NICOTINE 14 MG/24 HOURS TOPICAL PATCH TD SCH (10:08)
[2019-03-26] MEDS: PRENATAL VITAMINS W/ FOLIC ACID TABLET (FP) PO SCH (10:08)
[2019-03-26] MEDS: THIAMINE HCL 100 MG TABLET (FP) PO SCH (21:29)
[2019-03-26] MEDS: MELATONIN 5 MG TABLETS PO PRN (21:30)
[2019-03-27] MEDS ORDERED: METHADONE HCL 10 MG TABLET PO SCH (06:00)
[2019-03-27] MEDS ORDERED: METHADONE HCL 40 MG DISPERSABLE TABLET ONE (06:01)
[2019-03-27] MEDS ORDERED: METHADONE HCL 10 MG TABLET ONE (06:01)
[2019-03-27] MEDS: METHADONE 80 MG, METHADONE 30 MG PO SCH (06:20)
[2019-03-27] MEDS: PRENATAL VITAMINS W/ FOLIC ACID TABLET (FP) PO SCH (10:16)
[2019-03-27] MEDS: NICOTINE 14 MG/24 HOURS TOPICAL PATCH TD SCH (10:17)
[2019-03-27] MEDS: MELATONIN 5 MG TABLETS PO PRN (21:22)
[2019-03-27] MEDS: THIAMINE HCL 100 MG TABLET (FP) PO SCH (21:22)
[2019-03-28] MEDS ORDERED: METHADONE HCL 10 MG TABLET ONE (05:45)
[2019-03-28] MEDS ORDERED: METHADONE HCL 40 MG DISPERSABLE TABLET ONE (05:46)
[2019-03-28] MEDS: METHADONE 80 MG, METHADONE 30 MG PO SCH (06:15)
[2019-03-28] MEDS: NICOTINE 14 MG/24 HOURS TOPICAL PATCH TD SCH (10:16)
[2019-03-28] MEDS: PRENATAL VITAMINS W/ FOLIC ACID TABLET (FP) PO SCH (10:16)
[2019-03-28] MEDS: MAG HYDROX/AL HYDROX/SIMETH 30 ML UNIT-DOSE CUP PO PRN (10:17)
[2019-03-28] MEDS: THIAMINE HCL 100 MG TABLET (FP) PO SCH (21:21)
[2019-03-28] MEDS: MELATONIN 5 MG TABLETS PO PRN (21:21)
[2019-03-29] MEDS ORDERED: METHADONE HCL 10 MG TABLET ONE (05:59)
[2019-03-29] MEDS ORDERED: METHADONE HCL 40 MG DISPERSABLE TABLET ONE (05:59)
[2019-03-29] MEDS: METHADONE 80 MG, METHADONE 30 MG PO SCH (06:20)
[2019-03-29] MEDS: NICOTINE 14 MG/24 HOURS TOPICAL PATCH TD SCH (09:43)
[2019-03-29] MEDS: PRENATAL VITAMINS W/ FOLIC ACID TABLET (FP) PO SCH (09:44)
[2019-03-29] MEDS: THIAMINE HCL 100 MG TABLET (FP) PO SCH (21:11)
[2019-03-29] MEDS: MELATONIN 5 MG TABLETS PO PRN (21:12)
[2019-03-30] MEDS ORDERED: METHADONE HCL 10 MG TABLET ONE (05:59)
[2019-03-30] MEDS ORDERED: METHADONE HCL 40 MG DISPERSABLE TABLET ONE (06:00)
[2019-03-30] MEDS: METHADONE 80 MG, METHADONE 30 MG PO SCH (06:25)
[2019-03-30] MEDS: PRENATAL VITAMINS W/ FOLIC ACID TABLET (FP) PO SCH (09:49)
[2019-03-30] MEDS: NICOTINE 14 MG/24 HOURS TOPICAL PATCH TD SCH (09:50)
[2019-03-30] MEDS: THIAMINE HCL 100 MG TABLET (FP) PO SCH (21:19)
[2019-03-30] MEDS: MELATONIN 5 MG TABLETS PO PRN (21:19)
[2019-03-31] MEDS ORDERED: METHADONE HCL 40 MG DISPERSABLE TABLET ONE (05:58)
[2019-03-31] MEDS ORDERED: METHADONE HCL 10 MG TABLET ONE (05:58)
[2019-03-31] MEDS: METHADONE 80 MG, METHADONE 30 MG PO SCH (06:18)
[2019-03-31] MEDS: PRENATAL VITAMINS W/ FOLIC ACID TABLET (FP) PO SCH (10:21)
[2019-03-31] MEDS: NICOTINE 14 MG/24 HOURS TOPICAL PATCH TD SCH (10:21)
[2019-03-31] MEDS: MELATONIN 5 MG TABLETS PO PRN (21:26)
[2019-03-31] MEDS: THIAMINE HCL 100 MG TABLET (FP) PO SCH (21:26)
[2019-04-01 00:11] LABS: HEP B CORE AB, TOT Negative (Negative)
[2019-04-01] MEDS ORDERED: METHADONE HCL 10 MG TABLET ONE (05:46)
[2019-04-01] MEDS ORDERED: METHADONE HCL 40 MG DISPERSABLE TABLET ONE (05:47)
[2019-04-01] MEDS: METHADONE 80 MG, METHADONE 30 MG PO SCH (05:47)
[2019-04-01] MEDS: PRENATAL VITAMINS W/ FOLIC ACID TABLET (FP) PO SCH (09:51)
[2019-04-01] MEDS: NICOTINE 14 MG/24 HOURS TOPICAL PATCH TD SCH (09:51)
[2019-04-01] MEDS: MELATONIN 5 MG TABLETS PO PRN (21:42)
[2019-04-01] MEDS: THIAMINE HCL 100 MG TABLET (FP) PO SCH (21:42)
[2019-04-02] MEDS ORDERED: METHADONE HCL 40 MG DISPERSABLE TABLET ONE (06:09)
[2019-04-02] MEDS ORDERED: METHADONE HCL 10 MG TABLET ONE (06:09)
[2019-04-02] MEDS: METHADONE 80 MG, METHADONE 30 MG PO SCH (06:09)
[2019-04-02] MEDS: PRENATAL VITAMINS W/ FOLIC ACID TABLET (FP) PO SCH (09:50)
[2019-04-02] MEDS: NICOTINE 14 MG/24 HOURS TOPICAL PATCH TD SCH (09:50)
--- NOTE | 2019-04-02 11:52 | PN ---
[facility] Progress Note Note: Vital Signs Temperature 97 F L 04/02/19 07:00 Pulse Rate 68 04/02/19 07:00 Respiratory Rate 16 04/02/19 07:00 Blood Pressure 139/81 04/02/19 07:00 O2 Sat by Pulse Oximetry (%) Laboratory Tests 03/29/19 03/29/19 08:00 08:00 Hep A IgM Ab Confirm Negative Hepatitis A Ab Total Positive H Hep Bs Antigen Negative Hep Bs Antibody Reactive Hep B Core Total Ab Negative Hep B Core IgM Ab Negative Hepatitis Be Antibody Hepatitis Be Antigen Negative Hep C Ab Diagnostic >11.0 H Hepatitis C RNA 7.045 HCV RNA (PCR) IUs/ml [id number] HCV RNA PCR w/Genot Rflx See final results Liver Fibrosis Interp Patient has hx of Hep C and refused treatment in past. Patient currently pending [facility] treatment acceptance at [facility]. Patient is now willing to start treatment for Hep C. Sharon Conklin and Counselor Sowmya aware of patient's decision for outpatient management/referral. Patient also informed of services at [facility] for Hep C treatment as an alternative. Patient to follow up with counselor regarding acceptance to [facility].
[2019-04-02] MEDS: THIAMINE HCL 100 MG TABLET (FP) PO SCH (21:20)
[2019-04-02] MEDS: MELATONIN 5 MG TABLETS PO PRN (21:20)
[2019-04-03] MEDS ORDERED: METHADONE HCL 40 MG DISPERSABLE TABLET ONE (05:56)
[2019-04-03] MEDS ORDERED: METHADONE HCL 10 MG TABLET ONE (05:56)
[2019-04-03] MEDS: METHADONE 80 MG, METHADONE 30 MG PO SCH (06:26)
[2019-04-03] MEDS: PRENATAL VITAMINS W/ FOLIC ACID TABLET (FP) PO SCH (09:44)
[2019-04-03] MEDS: NICOTINE 14 MG/24 HOURS TOPICAL PATCH TD SCH (09:44)
--- NOTE | 2019-04-03 15:05 | PN ---
S Progress Note Note: Patient Continues to complains of sleeping poorly despite taking Melatonin 10 mg /hs prn and Benadryl. Will order Belsomra 10 mg po HS prn
[2019-04-03] MEDS: THIAMINE HCL 100 MG TABLET (FP) PO SCH (21:40)
[2019-04-03] MEDS: hydrOXYzine PAMOATE 50 MG CAPSULE (FP) PO PRN (21:41)
[2019-04-04] MEDS ORDERED: METHADONE HCL 10 MG TABLET ONE (06:05)
[2019-04-04] MEDS ORDERED: METHADONE HCL 40 MG DISPERSABLE TABLET ONE (06:05)
[2019-04-04] MEDS: METHADONE 80 MG, METHADONE 30 MG PO SCH (06:14)
[2019-04-04] MEDS: PRENATAL VITAMINS W/ FOLIC ACID TABLET (FP) PO SCH (10:43)
[2019-04-04] MEDS: NICOTINE 14 MG/24 HOURS TOPICAL PATCH TD SCH (10:43)
[2019-04-04] MEDS: THIAMINE HCL 100 MG TABLET (FP) PO SCH (21:36)
[2019-04-04] MEDS: hydrOXYzine PAMOATE 50 MG CAPSULE (FP) PO PRN (21:38)
[2019-04-05] MEDS ORDERED: METHADONE HCL 10 MG TABLET ONE (04:43)
[2019-04-05] MEDS ORDERED: METHADONE HCL 40 MG DISPERSABLE TABLET ONE (04:44)
[2019-04-05] MEDS: METHADONE 80 MG, METHADONE 30 MG PO SCH (06:43)
[2019-04-05] MEDS: PRENATAL VITAMINS W/ FOLIC ACID TABLET (FP) PO SCH (10:23)
[2019-04-05] MEDS: NICOTINE 14 MG/24 HOURS TOPICAL PATCH TD SCH (10:23)
[2019-04-05] MEDS: hydrOXYzine PAMOATE 50 MG CAPSULE (FP) PO PRN (21:55)
[2019-04-05] MEDS: THIAMINE HCL 100 MG TABLET (FP) PO SCH (21:55)
[2019-04-06] MEDS ORDERED: METHADONE HCL 40 MG DISPERSABLE TABLET ONE (05:59)
[2019-04-06] MEDS ORDERED: METHADONE HCL 10 MG TABLET ONE (05:59)
[2019-04-06] MEDS: METHADONE 80 MG, METHADONE 30 MG PO SCH (06:09)
[2019-04-06] MEDS: NICOTINE 14 MG/24 HOURS TOPICAL PATCH TD SCH (10:32)
[2019-04-06] MEDS: PRENATAL VITAMINS W/ FOLIC ACID TABLET (FP) PO SCH (10:32)
[2019-04-06] MEDS: THIAMINE HCL 100 MG TABLET (FP) PO SCH (21:39)
[2019-04-06] MEDS: hydrOXYzine PAMOATE 50 MG CAPSULE (FP) PO PRN (21:40)
[2019-04-07] MEDS ORDERED: METHADONE HCL 10 MG TABLET ONE (02:47)
[2019-04-07] MEDS ORDERED: METHADONE HCL 40 MG DISPERSABLE TABLET ONE (02:47)
[2019-04-07] MEDS: METHADONE 80 MG, METHADONE 30 MG PO SCH (06:07)
[2019-04-07] MEDS: NICOTINE 14 MG/24 HOURS TOPICAL PATCH TD SCH (09:49)
[2019-04-07] MEDS: PRENATAL VITAMINS W/ FOLIC ACID TABLET (FP) PO SCH (09:49)
[2019-04-07] MEDS: THIAMINE HCL 100 MG TABLET (FP) PO SCH (21:28)
[2019-04-07] MEDS: hydrOXYzine PAMOATE 50 MG CAPSULE (FP) PO PRN (21:28)
[2019-04-08] MEDS ORDERED: METHADONE HCL 40 MG DISPERSABLE TABLET ONE (05:57)
[2019-04-08] MEDS ORDERED: METHADONE HCL 10 MG TABLET ONE (05:57)
[2019-04-08] MEDS: METHADONE 80 MG, METHADONE 30 MG PO SCH (06:11)
[2019-04-08] MEDS: NICOTINE 14 MG/24 HOURS TOPICAL PATCH TD SCH (09:04)
[2019-04-08] MEDS: PRENATAL VITAMINS W/ FOLIC ACID TABLET (FP) PO SCH (09:04)
[2019-04-08] MEDS: THIAMINE HCL 100 MG TABLET (FP) PO SCH (21:14)
[2019-04-08] MEDS: hydrOXYzine PAMOATE 50 MG CAPSULE (FP) PO PRN (21:15)
[2019-04-09] MEDS ORDERED: METHADONE HCL 10 MG TABLET ONE (06:00)
[2019-04-09] MEDS ORDERED: METHADONE HCL 40 MG DISPERSABLE TABLET ONE (06:01)
[2019-04-09] MEDS: METHADONE 80 MG, METHADONE 30 MG PO SCH (06:07)
[2019-04-09] MEDS: PRENATAL VITAMINS W/ FOLIC ACID TABLET (FP) PO SCH (09:47)
[2019-04-09] MEDS: NICOTINE 14 MG/24 HOURS TOPICAL PATCH TD SCH (09:47)
[2019-04-09] MEDS ORDERED: PT OWN MED DRAWER 7, Y5N ONE (09:55)
[2019-04-09] MEDS: hydrOXYzine PAMOATE 50 MG CAPSULE (FP) PO PRN (21:17)
[2019-04-09] MEDS: THIAMINE HCL 100 MG TABLET (FP) PO SCH (21:17)
[2019-04-10] MEDS ORDERED: METHADONE HCL 10 MG TABLET ONE (03:59)
[2019-04-10] MEDS ORDERED: METHADONE HCL 40 MG DISPERSABLE TABLET ONE (04:00)
[2019-04-10] MEDS: METHADONE 80 MG, METHADONE 30 MG PO SCH (06:06)
[2019-04-10] MEDS: PRENATAL VITAMINS W/ FOLIC ACID TABLET (FP) PO SCH (09:44)
[2019-04-10] MEDS: NICOTINE 14 MG/24 HOURS TOPICAL PATCH TD SCH (09:44)
[2019-04-10] MEDS: hydrOXYzine PAMOATE 50 MG CAPSULE (FP) PO PRN (21:14)
[2019-04-10] MEDS: THIAMINE HCL 100 MG TABLET (FP) PO SCH (21:14)
[2019-04-11] MEDS ORDERED: METHADONE HCL 10 MG TABLET ONE (06:00)
[2019-04-11] MEDS ORDERED: METHADONE HCL 40 MG DISPERSABLE TABLET ONE (06:01)
[2019-04-11] MEDS: METHADONE 80 MG, METHADONE 30 MG PO SCH (06:30)
[2019-04-11] MEDS: PRENATAL VITAMINS W/ FOLIC ACID TABLET (FP) PO SCH (09:49)
[2019-04-11] MEDS: NICOTINE 14 MG/24 HOURS TOPICAL PATCH TD SCH (09:49)
[2019-04-11] MEDS: THIAMINE HCL 100 MG TABLET (FP) PO SCH (21:25)
[2019-04-11] MEDS: hydrOXYzine PAMOATE 50 MG CAPSULE (FP) PO PRN (21:26)
[2019-04-12] MEDS ORDERED: METHADONE HCL 10 MG TABLET ONE (03:24)
[2019-04-12] MEDS ORDERED: METHADONE HCL 40 MG DISPERSABLE TABLET ONE (03:24)
[2019-04-12] MEDS: METHADONE 80 MG, METHADONE 30 MG PO SCH (06:02)
[2019-04-12] MEDS: hydrOXYzine PAMOATE 50 MG CAPSULE (FP) PO PRN ×2 (10:02→21:35)
[2019-04-12] MEDS: NICOTINE 14 MG/24 HOURS TOPICAL PATCH TD SCH (10:02)
[2019-04-12] MEDS: PRENATAL VITAMINS W/ FOLIC ACID TABLET (FP) PO SCH (10:02)
[2019-04-12] MEDS: THIAMINE HCL 100 MG TABLET (FP) PO SCH (21:35)
[2019-04-13] MEDS ORDERED: METHADONE HCL 10 MG TABLET ONE (05:44)
[2019-04-13] MEDS ORDERED: METHADONE HCL 40 MG DISPERSABLE TABLET ONE (05:45)
[2019-04-13] MEDS: METHADONE 80 MG, METHADONE 30 MG PO SCH (06:41)
[2019-04-13] MEDS: NICOTINE 14 MG/24 HOURS TOPICAL PATCH TD SCH (10:02)
[2019-04-13] MEDS: PRENATAL VITAMINS W/ FOLIC ACID TABLET (FP) PO SCH (10:02)
[2019-04-13] MEDS: hydrOXYzine PAMOATE 50 MG CAPSULE (FP) PO PRN ×2 (10:03→21:37)
[2019-04-13] MEDS: THIAMINE HCL 100 MG TABLET (FP) PO SCH (21:37)
[2019-04-14] MEDS ORDERED: METHADONE HCL 40 MG DISPERSABLE TABLET ONE (04:31)
[2019-04-14] MEDS ORDERED: METHADONE HCL 10 MG TABLET ONE (04:31)
[2019-04-14] MEDS: METHADONE 80 MG, METHADONE 30 MG PO SCH (06:10)
[2019-04-14] MEDS: PRENATAL VITAMINS W/ FOLIC ACID TABLET (FP) PO SCH (10:02)
[2019-04-14] MEDS: NICOTINE 14 MG/24 HOURS TOPICAL PATCH TD SCH (10:02)
[2019-04-14] MEDS: hydrOXYzine PAMOATE 50 MG CAPSULE (FP) PO PRN ×2 (10:02→21:39)
[2019-04-14] MEDS: THIAMINE HCL 100 MG TABLET (FP) PO SCH (21:38)
[2019-04-15] MEDS ORDERED: METHADONE HCL 40 MG DISPERSABLE TABLET ONE (06:01)
[2019-04-15] MEDS ORDERED: METHADONE HCL 10 MG TABLET ONE (06:01)
[2019-04-15] MEDS: METHADONE 80 MG, METHADONE 30 MG PO SCH (06:23)
[2019-04-15] MEDS: NICOTINE 14 MG/24 HOURS TOPICAL PATCH TD SCH (09:53)
[2019-04-15] MEDS: hydrOXYzine PAMOATE 50 MG CAPSULE (FP) PO PRN ×2 (09:53→21:37)
[2019-04-15] MEDS: PRENATAL VITAMINS W/ FOLIC ACID TABLET (FP) PO SCH (09:53)
[2019-04-15] MEDS: THIAMINE HCL 100 MG TABLET (FP) PO SCH (21:36)
[2019-04-16] MEDS ORDERED: METHADONE HCL 10 MG TABLET PO SCH (06:45)
[2019-04-16] MEDS ORDERED: METHADONE 80 MG, METHADONE (DETOX) 30 MG PO SCH (08:00)
[2019-04-16] MEDS ORDERED: METHADONE HCL 40 MG DISPERSABLE TABLET ONE (08:03)
[2019-04-16] MEDS ORDERED: METHADONE HCL 10 MG TABLET ONE (08:03)
[2019-04-16] MEDS: METHADONE 80 MG, METHADONE 30 MG PO SCH (08:12)
[2019-04-16] MEDS: PRENATAL VITAMINS W/ FOLIC ACID TABLET (FP) PO SCH (09:25)
[2019-04-16] MEDS: NICOTINE 14 MG/24 HOURS TOPICAL PATCH TD SCH (09:25)
[2019-04-16] MEDS: hydrOXYzine PAMOATE 50 MG CAPSULE (FP) PO PRN ×2 (09:26→21:48)
[2019-04-16] MEDS: THIAMINE HCL 100 MG TABLET (FP) PO SCH (21:47)
[2019-04-16] MEDS ORDERED: SUVOREXANT 10 MG TABLET PO PRN (22:00)
[2019-04-17] MEDS ORDERED: METHADONE HCL 10 MG TABLET ONE (06:07)
[2019-04-17] MEDS ORDERED: METHADONE HCL 40 MG DISPERSABLE TABLET ONE (06:07)
[2019-04-17] MEDS: METHADONE 80 MG, METHADONE 30 MG PO SCH (06:30)
[2019-04-17 07:12] VITALS: BP 120/79; PULSE 90; TEMP 98
--- NOTE | 2019-04-17 08:57 | DS ---
[facility] Rehab Discharge Summary - [facility] Rehab Discharge Summary Admission Date: 03/20/19 Discharge Date: 04/17/19 - History Present History: Alcohol dependence, Opioid dependence Pertinent Past History: 43 year old male with a long history of alcohol dependence ( since age 13 years ). Patient has been in detox multiple times and reports insignificant period of sobriety. He has history of asthma, Hep C, hypertension seizure, blind right eye and depression. He denies suicidal ideation at this time. He is on Methadone maintenance therapy. - Discharge Physical Exam Vital Signs: Vital Signs Temperature 98 F 04/17/19 07:11 Pulse Rate 90 04/17/19 07:11 Respiratory Rate 18 04/17/19 07:11 Blood Pressure 120/79 04/17/19 07:11 O2 Sat by Pulse Oximetry (%) Pertinent Admission Physical Exam Findings: - Physical General Appearance: No apparent distress HEENTM: edentulous, normocephalic, PERRLA Respiratory: Lungs Clear Neck: Supple Cardiology:Regular Rhythm & Rate Abdominal: +Bowel Sounds Musculoskeletal: Full weight bearing, full ROM, steady gait Neurological: CN 2-12 intact Integumentary: Color consistent throughout trunk and extremities - Treatment Discharge Condition: Outpatient referral accepted (Patient has appointment at [facility] for treatment of HEP C and [facility] for substance use disorder treatment. Medically stable for discharge.) Hospital Course: patient attended groups, had 1:1 with counselor, was seen by psychiatric provider, and was adherent to his treatment plan and medication regimen. - Medication Discharge Medications: Ambulatory Orders Methadone [Dolophine -] 110 mg PO DAILY 05/14/18 Albuterol Sulfate Inhaler - [Ventolin HFA Inhaler -] 2 inh PO Q4H PRN #1 inhaler 04/17/19 - Medication-Assisted Treatment (MAT) Medication-Assisted Treatment (MAT): Yes MAT Follow-up Referral: MMTP at [facility] - Discharge Instructions Diet, activity, other medical instructions: Diet: as tolerated Activity: as tolerated Other medical instructions: Please keep appointments with the [facility] and [facility]. - Diagnosis (1) Alcohol dependence Current Visit: Yes Status: Chronic Qualifiers: Substance use status: uncomplicated Qualified Code(s): F10.20 - Alcohol dependence, uncomplicated (2) Methadone maintenance therapy patient Current Visit: Yes Status: Chronic (3) Hepatitis C Current Visit: No Status: Chronic Qualifiers: Viral hepatitis chronicity: chronic Hepatic coma status: without hepatic coma Qualified Code(s): B18.2 - Chronic viral hepatitis C - Follow-up Referral Minutes to complete discharge: 20 - AMA Did Patient Leave Against Medical Advice: No Additional Comments: Medically stable for discharge; completed rehab.
[2019-04-17] MEDS: PRENATAL VITAMINS W/ FOLIC ACID TABLET (FP) PO SCH (09:13)
[2019-04-17] MEDS: NICOTINE 14 MG/24 HOURS TOPICAL PATCH TD SCH (09:14)
[2019-04-17] MEDS: hydrOXYzine PAMOATE 50 MG CAPSULE (FP) PO PRN (09:14)
== END 2019-04-17 09:23 | disposition home or self-care (01) | DRG 772 ==
LOC: YASAS 23:18 → Y6N 03-20 02:20 → Y3W 03-20 02:42
PROVIDERS: ADMIT Neuromusculoskeletal Medicine & OMM; ATTEND Neuromusculoskeletal Medicine & OMM
PROC: HZ42ZZZ Group Counseling for Substance Abuse Treatment, Cognitive-Behavioral (ICD-10-PCS; principal; 2019-03-20)
DX: F10.20 Alcohol dependence, uncomplicated (principal); F11.20 Opioid dependence, uncomplicated; F19.282 Other psychoactive substance dependence with psychoactive substance-induced sleep disorder; F10.24 Alcohol dependence with alcohol-induced mood disorder; B18.2 Chronic viral hepatitis C; I10 Essential (primary) hypertension; G40.909 Epilepsy, unspecified, not intractable, without status epilepticus; H54.61 Unqualified visual loss, right eye, normal vision left eye; Z91.018 Allergy to other foods
CPT/HCPCS: 36415; 86704; 86706; 86707; 86708; 86709; 86803; 87340

== ENCOUNTER 2019-05-04 19:33 | Inpatient (IN) | payer OTHER ==
[2019-05-04 20:26] VITALS: BMI 21.1
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
[2019-05-04] MEDS ORDERED: MAG HYDROX/AL HYDROX/SIMETH 30 ML UNIT-DOSE CUP PO PRN (21:55)
[2019-05-04] MEDS ORDERED: ONDANSETRON *ODT* 4 MG TABLET SL PRN (21:55)
[2019-05-04] MEDS ORDERED: NICOTINE POLACRILEX 2 MG GUM BUC PRN (21:55)
[2019-05-04] MEDS ORDERED: MENTHOL/PHENOL 1 EACH UD MM PRN (21:55)
[2019-05-04] MEDS ORDERED: P-EPHED 60MG/TRIPROLIDI 2.5MG TABLET PO PRN (21:55)
[2019-05-04] MEDS ORDERED: METHOCARBAMOL 500 MG TABLET PO PRN (21:55)
[2019-05-04] MEDS ORDERED: hydrOXYzine PAMOATE 25 MG CAPSULE (FP) PO PRN (21:55)
[2019-05-04] MEDS ORDERED: IBUPROFEN 400 MG TABLET (FP) PO PRN ×2 (21:55)
[2019-05-04] MEDS ORDERED: chlordiazePOXIDE HCL 25 MG CAPSULE PO PRN (21:55)
[2019-05-04] MEDS ORDERED: MAGNESIUM CITRATE 300 ML BOTTLE PO PRN (21:55)
[2019-05-04] MEDS ORDERED: guaiFENesin 200 MG/10 ML 10 ML UNIT-DOSE CUPS PO PRN (21:55)
[2019-05-04] MEDS ORDERED: ACETAMINOPHEN 325 MG TABLET (FP) PO PRN ×2 (21:55)
[2019-05-04] MEDS ORDERED: BISMUTH SUBSALICYLATE 524 MG/30 ML UD PO PRN (21:55)
[2019-05-04] MEDS ORDERED: DICYCLOMINE HCL 10 MG CAPSULE PO PRN (21:55)
[2019-05-04] MEDS ORDERED: MAGNESIUM HYDROX 2400MG/30ML ORAL SUSPENSION 30 ML CUP PO PRN (21:55)
[2019-05-04] MEDS: chlordiazePOXIDE HCL 25 MG CAPSULE PO SCH (23:16)
[2019-05-04] MEDS: THIAMINE HCL 100 MG TABLET (FP) PO SCH (23:16)
[2019-05-04] MEDS: MELATONIN 5 MG TABLETS PO PRN (23:17)
[2019-05-05] MEDS: chlordiazePOXIDE HCL 25 MG CAPSULE PO SCH ×2 (05:37→10:14)
[2019-05-05] MEDS ORDERED: METHADONE HCL 10 MG TABLET PO SCH (09:00)
[2019-05-05] MEDS ORDERED: METHADONE HCL 10 MG TABLET ONE (09:20)
[2019-05-05] MEDS ORDERED: METHADONE HCL 40 MG DISPERSABLE TABLET ONE (09:21)
[2019-05-05] MEDS: PRENATAL VITAMINS W/ FOLIC ACID TABLET (FP) PO SCH (09:27)
[2019-05-05] MEDS: METHADONE 80 MG, METHADONE 30 MG PO SCH (09:27)
[2019-05-05 09:54] LABS: HEMOGLOBIN 12.6 GM/dL (11.7-16.9); MCH 34.1 pg (25.7-33.7); MCHC 34.2 g/dl (32.0-35.9); MEAN CELL VOLUME 99.9 fl (80-96); MEAN PLT VOLUME 9.5 fl (7.5-11.1); PLATELET COUNT 122 K/MM3 (134-434); RDW 13.1 % (11.9-15.9); WHITE BLOOD COUNT 4.3 K/mm3 (4.0-10.0)
[2019-05-05] MEDS: NICOTINE 21 MG/24 HOURS TOPICAL PATCH TD SCH (10:14)
[2019-05-05 10:30] LABS: ALBUMIN 3.5 g/dl (3.4-5.0); BILIRUBIN,TOTAL 1.4 mg/dL (0.2-1); BLOOD UREA NITROGEN 11.5 mg/dL (7-18); CALCIUM 9.1 mg/dL (8.5-10.1); CREATININE 0.8 mg/dL (0.55-1.3); POTASSIUM 3.9 mmol/L (3.5-5.1); TOT PROT 6.8 g/dl (6.4-8.2)
--- NOTE | 2019-05-05 11:28 | PN ---
S CIWA - CIWA Score Nausea/Vomitin-No Nausea/No Vomiting Muscle Tremors: 2 Anxiety: 3 Agitation: 0-Normal Activity Paroxysmal Sweats: 3 Orientation: 0-Oriented Tacttile Disturbances: 0-None Auditory Disturbances: 0-None Visual Disturbances: 0-None Headache: 2-Mild CIWA-Ar Total Score: 10 BHS Progress Note (SOAP) Subjective: c//o headache, anxiety, lower back pain, and sweats. Objective: 05/05/19 11:27 Vital Signs 05/05/19 05/05/19 05/05/19 03:30 06:09 09:05 Temperature 98.0 F 97.6 F Pulse Rate 55 L 64 Respiratory 18 18 18 Rate Blood Pressure 117/72 122/92 Lab Results WBC 4.3 K/mm3 (4.0-10.0) 05/05/19 07:45 RBC 3.70 M/mm3 (4.00-5.60) L 05/05/19 07:45 Hgb 12.6 GM/dL (11.7-16.9) 05/05/19 07:45 Hct 37.0 % (35.4-49) 05/05/19 07:45 MCV 99.9 fl (80-96) H 05/05/19 07:45 MCHC 34.2 g/dl (32.0-35.9) 05/05/19 07:45 RDW 13.1 % (11.9-15.9) 05/05/19 07:45 Plt Count 122 K/MM3 (134-434) L D 05/05/19 07:45 Sodium 137 mmol/L (136-145) 05/05/19 07:45 Potassium 3.9 mmol/L (3.5-5.1) 05/05/19 07:45 Chloride 102 mmol/L (98-107) 05/05/19 07:45 Carbon Dioxide 29 mmol/L (21-32) 05/05/19 07:45 Anion Gap 5 MMOL/L (8-16) L 05/05/19 07:45 BUN 11.5 mg/dL (7-18) 05/05/19 07:45 Creatinine 0.8 mg/dL (0.55-1.3) 05/05/19 07:45 Random Glucose 93 mg/dL (74-106) 05/05/19 07:45 Calcium 9.1 mg/dL (8.5-10.1) 05/05/19 07:45 Labs noted. Assessment: 05/05/19 11:27 AOX3, in no acute respiratory distress. Full ROM, ambulating in the unit. Withdrawal symptoms. Plan: continue detox.
[2019-05-05] MEDS: LORazepam 2 MG TABLET PO SCH ×2 (17:38→22:21)
[2019-05-05] MEDS: MELATONIN 5 MG TABLETS PO PRN (22:21)
[2019-05-05] MEDS: THIAMINE HCL 100 MG TABLET (FP) PO SCH (22:21)
[2019-05-06] MEDS ORDERED: METHADONE HCL 10 MG TABLET ONE (03:01)
[2019-05-06] MEDS ORDERED: METHADONE HCL 40 MG DISPERSABLE TABLET ONE (03:02)
[2019-05-06] MEDS ORDERED: chlordiazePOXIDE HCL 25 MG CAPSULE PO SCH (05:00)
[2019-05-06] MEDS: METHADONE 80 MG, METHADONE 30 MG PO SCH (05:42)
[2019-05-06] MEDS: LORazepam 2 MG TABLET PO SCH ×4 (05:42→22:29)
[2019-05-06] MEDS: PRENATAL VITAMINS W/ FOLIC ACID TABLET (FP) PO SCH (10:12)
[2019-05-06] MEDS: NICOTINE 21 MG/24 HOURS TOPICAL PATCH TD SCH (10:12)
--- NOTE | 2019-05-06 10:16 | PN ---
[facility] CIWA - CIWA Score Nausea/Vomitin-Mild Nausea/No Vomiting Muscle Tremors: 3 Anxiety: 2 Agitation: 1-Slight > Activity Paroxysmal Sweats: 2 Orientation: 0-Oriented Tacttile Disturbances: 0-None Auditory Disturbances: 0-None Visual Disturbances: 0-None Headache: 0-None Present CIWA-Ar Total Score: 9 S Progress Note (SOAP) Subjective: 43 years old male admitted on 05/04/19 for alcohol withdrawal sx management treated with ativan detox regimen eating breakfast no trouble chewing swallowing taking methadone 110 mg po daily Objective: 05/06/19 10:17 Vital Signs Temperature 96.6 F L 05/06/19 09:12 Pulse Rate 76 05/06/19 09:12 Respiratory Rate 16 05/06/19 09:12 Blood Pressure 120/89 05/06/19 09:12 O2 Sat by Pulse Oximetry (%) Laboratory Last Values WBC 4.3 K/mm3 (4.0-10.0) 05/05/19 07:45 RBC 3.70 M/mm3 (4.00-5.60) L 05/05/19 07:45 Hgb 12.6 GM/dL (11.7-16.9) 05/05/19 07:45 Hct 37.0 % (35.4-49) 05/05/19 07:45 MCV 99.9 fl (80-96) H 05/05/19 07:45 MCH 34.1 pg (25.7-33.7) H 05/05/19 07:45 MCHC 34.2 g/dl (32.0-35.9) 05/05/19 07:45 RDW 13.1 % (11.9-15.9) 05/05/19 07:45 Plt Count 122 K/MM3 (134-434) L D 05/05/19 07:45 MPV 9.5 fl (7.5-11.1) 05/05/19 07:45 Sodium 137 mmol/L (136-145) 05/05/19 07:45 Potassium 3.9 mmol/L (3.5-5.1) 05/05/19 07:45 Chloride 102 mmol/L (98-107) 05/05/19 07:45 Carbon Dioxide 29 mmol/L (21-32) 05/05/19 07:45 Anion Gap 5 MMOL/L (8-16) L 05/05/19 07:45 BUN 11.5 mg/dL (7-18) 05/05/19 07:45 Creatinine 0.8 mg/dL (0.55-1.3) 05/05/19 07:45 Est GFR (CKD-EPI)AfAm 125.92 05/05/19 07:45 Est GFR (CKD-EPI)NonAf 108.65 05/05/19 07:45 Random Glucose 93 mg/dL (74-106) 05/05/19 07:45 Calcium 9.1 mg/dL (8.5-10.1) 05/05/19 07:45 Total Bilirubin 1.4 mg/dL (0.2-1) H 05/05/19 07:45 AST 127 U/L (15-37) H 05/05/19 07:45 ALT 157 U/L (13-61) H 05/05/19 07:45 Alkaline Phosphatase 138 U/L (45-117) H 05/05/19 07:45 Total Protein 6.8 g/dl (6.4-8.2) 05/05/19 07:45 Albumin 3.5 g/dl (3.4-5.0) 05/05/19 07:45 lab noted repeat ast 05/08/19 Assessment: 05/06/19 10:18 alcohol withdrawal sx Plan: continue ativan detox regimen
[2019-05-06] MEDS: THIAMINE HCL 100 MG TABLET (FP) PO SCH (22:29)
[2019-05-06] MEDS: MELATONIN 5 MG TABLETS PO PRN (22:29)
[2019-05-07] MEDS ORDERED: chlordiazePOXIDE HCL 10 MG CAPSULE PO PRN
[2019-05-07] MEDS ORDERED: METHADONE HCL 10 MG TABLET ONE (04:41)
[2019-05-07] MEDS ORDERED: METHADONE HCL 40 MG DISPERSABLE TABLET ONE (04:41)
[2019-05-07] MEDS ORDERED: chlordiazePOXIDE HCL 10 MG CAPSULE PO SCH (05:00)
[2019-05-07] MEDS: LORazepam 1 MG TABLET PO SCH ×4 (05:20→22:14)
[2019-05-07] MEDS: METHADONE 80 MG, METHADONE 30 MG PO SCH (05:20)
[2019-05-07] MEDS: PRENATAL VITAMINS W/ FOLIC ACID TABLET (FP) PO SCH (10:24)
[2019-05-07] MEDS: NICOTINE 21 MG/24 HOURS TOPICAL PATCH TD SCH (10:26)
--- NOTE | 2019-05-07 13:23 | PN ---
S CIWA - CIWA Score Nausea/Vomitin-No Nausea/No Vomiting Muscle Tremors: 2 Anxiety: 2 Agitation: 2 Paroxysmal Sweats: No Perspiration Orientation: 0-Oriented Tacttile Disturbances: 0-None Auditory Disturbances: 0-None Visual Disturbances: 0-None Headache: 0-None Present CIWA-Ar Total Score: 6 BHS Progress Note (SOAP) Subjective: 43 years old male admitted on 05/04/19 for alcohol withdrawal sx management treated with ativan detox regimen patient tolerated well feeling better today slept throughout the night well rested Objective: 05/07/19 13:21 Vital Signs Temperature 97.3 F L 05/07/19 13:15 Pulse Rate 73 05/07/19 13:15 Respiratory Rate 16 05/07/19 13:15 Blood Pressure 117/84 05/07/19 13:15 O2 Sat by Pulse Oximetry (%) Laboratory Last Values WBC 4.3 K/mm3 (4.0-10.0) 05/05/19 07:45 RBC 3.70 M/mm3 (4.00-5.60) L 05/05/19 07:45 Hgb 12.6 GM/dL (11.7-16.9) 05/05/19 07:45 Hct 37.0 % (35.4-49) 05/05/19 07:45 MCV 99.9 fl (80-96) H 05/05/19 07:45 MCH 34.1 pg (25.7-33.7) H 05/05/19 07:45 MCHC 34.2 g/dl (32.0-35.9) 05/05/19 07:45 RDW 13.1 % (11.9-15.9) 05/05/19 07:45 Plt Count 122 K/MM3 (134-434) L D 05/05/19 07:45 MPV 9.5 fl (7.5-11.1) 05/05/19 07:45 Sodium 137 mmol/L (136-145) 05/05/19 07:45 Potassium 3.9 mmol/L (3.5-5.1) 05/05/19 07:45 Chloride 102 mmol/L (98-107) 05/05/19 07:45 Carbon Dioxide 29 mmol/L (21-32) 05/05/19 07:45 Anion Gap 5 MMOL/L (8-16) L 05/05/19 07:45 BUN 11.5 mg/dL (7-18) 05/05/19 07:45 Creatinine 0.8 mg/dL (0.55-1.3) 05/05/19 07:45 Est GFR (CKD-EPI)AfAm 125.92 05/05/19 07:45 Est GFR (CKD-EPI)NonAf 108.65 05/05/19 07:45 Random Glucose 93 mg/dL (74-106) 05/05/19 07:45 Calcium 9.1 mg/dL (8.5-10.1) 05/05/19 07:45 Total Bilirubin 1.4 mg/dL (0.2-1) H 05/05/19 07:45 AST 127 U/L (15-37) H 05/05/19 07:45 ALT 157 U/L (13-61) H 05/05/19 07:45 Alkaline Phosphatase 138 U/L (45-117) H 05/05/19 07:45 Total Protein 6.8 g/dl (6.4-8.2) 05/05/19 07:45 Albumin 3.5 g/dl (3.4-5.0) 05/05/19 07:45 lab noted 05/07/19 13:22 repeat ast 05/08/19 Assessment: 05/07/19 13:22 alcohol withdrawal sx Plan: continue ativan detox regimen
[2019-05-07] MEDS: THIAMINE HCL 100 MG TABLET (FP) PO SCH (22:14)
[2019-05-07] MEDS: MELATONIN 5 MG TABLETS PO PRN (22:14)
[2019-05-08] MEDS ORDERED: LORazepam 0.5 MG TABLET PO PRN
[2019-05-08] MEDS ORDERED: METHADONE HCL 10 MG TABLET ONE (04:30)
[2019-05-08] MEDS ORDERED: METHADONE HCL 40 MG DISPERSABLE TABLET ONE (04:30)
[2019-05-08] MEDS ORDERED: chlordiazePOXIDE HCL 10 MG CAPSULE PO SCH (05:00)
[2019-05-08] MEDS: METHADONE 80 MG, METHADONE 30 MG PO SCH (05:42)
[2019-05-08] MEDS: LORazepam 0.5 MG TABLET PO SCH ×4 (05:43→22:02)
--- NOTE | 2019-05-08 10:08 | PN ---
[facility] CIWA - CIWA Score Nausea/Vomitin-No Nausea/No Vomiting Muscle Tremors: 1-None Visible, but [place] Anxiety: 1-Mildly Anxious Agitation: 1-Slight > Activity Paroxysmal Sweats: No Perspiration Orientation: 0-Oriented Tacttile Disturbances: 0-None Auditory Disturbances: 0-None Visual Disturbances: 0-None Headache: 0-None Present CIWA-Ar Total Score: 3 BHS Progress Note (SOAP) Subjective: 43 years old male admitted on 05/04/19 for alcohol withdrawal sx management treated with ativan detox regimen patient tolerated well received methadone 110 mg po today patient prefers return to methadone treatment program for medical and mental issues Objective: 05/08/19 10:07 Vital Signs Temperature 97.8 F 05/08/19 09:19 Pulse Rate 83 05/08/19 09:19 Respiratory Rate 16 05/08/19 09:19 Blood Pressure 124/91 05/08/19 09:19 O2 Sat by Pulse Oximetry (%) Laboratory Last Values WBC 4.3 K/mm3 (4.0-10.0) 05/05/19 07:45 RBC 3.70 M/mm3 (4.00-5.60) L 05/05/19 07:45 Hgb 12.6 GM/dL (11.7-16.9) 05/05/19 07:45 Hct 37.0 % (35.4-49) 05/05/19 07:45 MCV 99.9 fl (80-96) H 05/05/19 07:45 MCH 34.1 pg (25.7-33.7) H 05/05/19 07:45 MCHC 34.2 g/dl (32.0-35.9) 05/05/19 07:45 RDW 13.1 % (11.9-15.9) 05/05/19 07:45 Plt Count 122 K/MM3 (134-434) L D 05/05/19 07:45 MPV 9.5 fl (7.5-11.1) 05/05/19 07:45 Sodium 137 mmol/L (136-145) 05/05/19 07:45 Potassium 3.9 mmol/L (3.5-5.1) 05/05/19 07:45 Chloride 102 mmol/L (98-107) 05/05/19 07:45 Carbon Dioxide 29 mmol/L (21-32) 05/05/19 07:45 Anion Gap 5 MMOL/L (8-16) L 05/05/19 07:45 BUN 11.5 mg/dL (7-18) 05/05/19 07:45 Creatinine 0.8 mg/dL (0.55-1.3) 05/05/19 07:45 Est GFR (CKD-EPI)AfAm 125.92 05/05/19 07:45 Est GFR (CKD-EPI)NonAf 108.65 05/05/19 07:45 Random Glucose 93 mg/dL (74-106) 05/05/19 07:45 Calcium 9.1 mg/dL (8.5-10.1) 05/05/19 07:45 Total Bilirubin 1.4 mg/dL (0.2-1) H 05/05/19 07:45 AST 78 U/L (15-37) H 05/08/19 08:00 ALT 157 U/L (13-61) H 05/05/19 07:45 Alkaline Phosphatase 138 U/L (45-117) H 05/05/19 07:45 Total Protein 6.8 g/dl (6.4-8.2) 05/05/19 07:45 Albumin 3.5 g/dl (3.4-5.0) 05/05/19 07:45 lab noted Assessment: 05/08/19 10:07 alcohol withdrawal sx Plan: continue ativan detox regimen
[2019-05-08] MEDS: NICOTINE 21 MG/24 HOURS TOPICAL PATCH TD SCH (10:19)
[2019-05-08] MEDS: PRENATAL VITAMINS W/ FOLIC ACID TABLET (FP) PO SCH (10:19)
[2019-05-08] MEDS: LIDOCAINE 5% TOPICAL PATCH TP SCH (15:05)
[2019-05-08] MEDS ORDERED: LIDOCAINE PATCH REMOVAL MC SCH (22:00)
[2019-05-08] MEDS: THIAMINE HCL 100 MG TABLET (FP) PO SCH (22:02)
[2019-05-08] MEDS: MELATONIN 5 MG TABLETS PO PRN (22:04)
[2019-05-09] MEDS ORDERED: METHADONE HCL 10 MG TABLET ONE (04:35)
[2019-05-09] MEDS ORDERED: METHADONE HCL 40 MG DISPERSABLE TABLET ONE (04:35)
[2019-05-09] MEDS ORDERED: LORazepam 0.5 MG TABLET PO ONE (05:00)
[2019-05-09] MEDS ORDERED: chlordiazePOXIDE HCL 10 MG CAPSULE PO ONE (05:00)
[2019-05-09] MEDS: METHADONE 80 MG, METHADONE 30 MG PO SCH (05:46)
[2019-05-09 06:13] VITALS: BP 114/73; PULSE 53; TEMP 97.5
[2019-05-09] MEDS: LIDOCAINE 5% TOPICAL PATCH TP SCH (09:17)
[2019-05-09] MEDS: NICOTINE 21 MG/24 HOURS TOPICAL PATCH TD SCH (09:17)
[2019-05-09] MEDS: PRENATAL VITAMINS W/ FOLIC ACID TABLET (FP) PO SCH (09:17)
--- NOTE | 2019-05-09 11:21 | DS ---
[facility] Detox Discharge Summary Admission Date: 05/04/19 Discharge Date: 05/09/19 - History Present History: Alcohol Dependence Additional Comments: 43 years old male admitted on 05/04/19 for alcohol withdrawal sx management treated wtih ativan detox regimen patient is alert oriented x 3 cardiac S1S2 regular rate rhythm respiratory clear lung bilaterally on auscultation abdomen soft no rebound tenderness - Physical Exam Results Vital Signs: Vital Signs Temperature 97.5 F L 05/09/19 06:13 Pulse Rate 53 L 05/09/19 06:13 Respiratory Rate 16 05/09/19 06:13 Blood Pressure 114/73 05/09/19 06:13 O2 Sat by Pulse Oximetry (%) Pertinent Admission Physical Exam Findings: alcohol withdrawal sx Vital Signs Temperature 97.5 F L 05/09/19 06:13 Pulse Rate 53 L 05/09/19 06:13 Respiratory Rate 16 05/09/19 06:13 Blood Pressure 114/73 05/09/19 06:13 O2 Sat by Pulse Oximetry (%) Laboratory Last Values WBC 4.3 K/mm3 (4.0-10.0) 05/05/19 07:45 RBC 3.70 M/mm3 (4.00-5.60) L 05/05/19 07:45 Hgb 12.6 GM/dL (11.7-16.9) 05/05/19 07:45 Hct 37.0 % (35.4-49) 05/05/19 07:45 MCV 99.9 fl (80-96) H 05/05/19 07:45 MCH 34.1 pg (25.7-33.7) H 05/05/19 07:45 MCHC 34.2 g/dl (32.0-35.9) 05/05/19 07:45 RDW 13.1 % (11.9-15.9) 05/05/19 07:45 Plt Count 122 K/MM3 (134-434) L D 05/05/19 07:45 MPV 9.5 fl (7.5-11.1) 05/05/19 07:45 Sodium 137 mmol/L (136-145) 05/05/19 07:45 Potassium 3.9 mmol/L (3.5-5.1) 05/05/19 07:45 Chloride 102 mmol/L (98-107) 05/05/19 07:45 Carbon Dioxide 29 mmol/L (21-32) 05/05/19 07:45 Anion Gap 5 MMOL/L (8-16) L 05/05/19 07:45 BUN 11.5 mg/dL (7-18) 05/05/19 07:45 Creatinine 0.8 mg/dL (0.55-1.3) 05/05/19 07:45 Est GFR (CKD-EPI)AfAm 125.92 05/05/19 07:45 Est GFR (CKD-EPI)NonAf 108.65 05/05/19 07:45 Random Glucose 93 mg/dL (74-106) 05/05/19 07:45 Calcium 9.1 mg/dL (8.5-10.1) 05/05/19 07:45 Total Bilirubin 1.4 mg/dL (0.2-1) H 05/05/19 07:45 AST 78 U/L (15-37) H 05/08/19 08:00 ALT 157 U/L (13-61) H 05/05/19 07:45 Alkaline Phosphatase 138 U/L (45-117) H 05/05/19 07:45 Total Protein 6.8 g/dl (6.4-8.2) 05/05/19 07:45 Albumin 3.5 g/dl (3.4-5.0) 05/05/19 07:45 ast elevation lab noted patient agrees to returning to methadone program follow up ast elevation - Treatment Hospital Course: Detox Protocol Followed, Detoxed Safely, Responded well, Discharged Condition Good, Rehab Referral Accepted Patient has Accepted a Rehab Referral to: [facility] - Medication Discharge Medications: Ambulatory Orders Methadone [Dolophine -] 110 mg PO DAILY 05/14/18 Albuterol Sulfate Inhaler - [Ventolin HFA Inhaler -] 2 inh PO Q4H PRN #1 inhaler 04/17/19 - Diagnosis (1) Alcohol dependence with withdrawal, uncomplicated Status: Acute (2) Substance induced mood disorder Status: Suspected (3) Weight decreased Status: Acute (4) Asthma Status: Chronic Qualifiers: Asthma severity: mild Asthma persistence: intermittent Asthma complication type: with status asthmaticus Qualified Code(s): J45.22 - Mild intermittent asthma with status asthmaticus (5) Hepatitis C Status: Chronic Qualifiers: Viral hepatitis chronicity: chronic Hepatic coma status: without hepatic coma Qualified Code(s): B18.2 - Chronic viral hepatitis C (6) Hypertension Status: Chronic Qualifiers: Hypertension type: essential hypertension Qualified Code(s): I10 - Essential (primary) hypertension (7) Methadone maintenance therapy patient Status: Chronic (8) Nicotine dependence Status: Acute Qualifiers: Nicotine product type: cigarettes Substance use status: in withdrawal Qualified Code(s): F17.213 - Nicotine dependence, cigarettes, with withdrawal (9) Substance induced mood disorder Status: Suspected - AMA Did Patient Leave Against Medical Advice: No CIWA Score - CIWA Score Nausea/Vomitin-No Nausea/No Vomiting Muscle Tremors: 1-None Visible, but [place] Anxiety: 0-No Anxiety, at Ease Agitation: 0-Normal Activity Paroxysmal Sweats: No Perspiration Orientation: 0-Oriented Tacttile Disturbances: 0-None Auditory Disturbances: 0-None Visual Disturbances: 0-None Headache: 0-None Present CIWA-Ar Total Score: 1
== END 2019-05-09 09:05 | disposition home or self-care (01) | DRG 773 ==
LOC: YASAS 19:33 → Y3N 22:48
PROVIDERS: ADMIT Allergy & Immunology; ATTEND Allergy & Immunology
PROC: HZ2ZZZZ Detoxification Services for Substance Abuse Treatment (ICD-10-PCS; principal; 2019-05-04)
DX: F10.230 Alcohol dependence with withdrawal, uncomplicated (principal); F11.20 Opioid dependence, uncomplicated; F12.20 Cannabis dependence, uncomplicated; F17.210 Nicotine dependence, cigarettes, uncomplicated; F19.282 Other psychoactive substance dependence with psychoactive substance-induced sleep disorder; F19.24 Other psychoactive substance dependence with psychoactive substance-induced mood disorder; F10.24 Alcohol dependence with alcohol-induced mood disorder; I10 Essential (primary) hypertension; B18.2 Chronic viral hepatitis C; J45.22 Mild intermittent asthma with status asthmaticus; H54.61 Unqualified visual loss, right eye, normal vision left eye; R94.5 Abnormal results of liver function studies; R63.4 Abnormal weight loss; Z68.21 Body mass index [BMI] 21.0-21.9, adult; Z91.018 Allergy to other foods; Z59.0 Homelessness
CPT/HCPCS: 36415; 80053; 84450; 85027; Q0162

== ENCOUNTER 2019-06-04 19:48 | Inpatient (IN) | payer OTHER ==
[2019-06-04 20:12] VITALS: BMI 21.8
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
[2019-06-04] MEDS ORDERED: MAG HYDROX/AL HYDROX/SIMETH 30 ML UNIT-DOSE CUP PO PRN (22:54)
[2019-06-04] MEDS ORDERED: MAGNESIUM CITRATE 300 ML BOTTLE PO PRN (22:54)
[2019-06-04] MEDS ORDERED: MAGNESIUM HYDROX 2400MG/30ML ORAL SUSPENSION 30 ML CUP PO PRN (22:54)
[2019-06-04] MEDS ORDERED: IBUPROFEN 400 MG TABLET (FP) PO PRN (22:54)
[2019-06-04] MEDS ORDERED: BISMUTH SUBSALICYLATE 524 MG/30 ML UD PO PRN (22:54)
[2019-06-04] MEDS ORDERED: NICOTINE POLACRILEX 2 MG GUM BUC PRN (22:54)
[2019-06-04] MEDS ORDERED: ACETAMINOPHEN 325 MG TABLET (FP) PO PRN ×2 (22:54)
[2019-06-04] MEDS ORDERED: METHOCARBAMOL 500 MG TABLET PO PRN (22:54)
[2019-06-04] MEDS ORDERED: MENTHOL/PHENOL 1 EACH UD MM PRN (22:54)
[2019-06-04] MEDS ORDERED: chlordiazePOXIDE HCL 25 MG CAPSULE PO PRN (22:54)
[2019-06-04] MEDS ORDERED: hydrOXYzine PAMOATE 25 MG CAPSULE (FP) PO PRN (22:54)
[2019-06-05] MEDS: chlordiazePOXIDE HCL 25 MG CAPSULE PO SCH ×5 (00:07→22:16)
[2019-06-05] MEDS ORDERED: METHADONE HCL 10 MG TABLET PO ONE (08:48)
[2019-06-05] MEDS ORDERED: METHADONE 80 MG, METHADONE 30 MG PO ONE (09:00)
[2019-06-05] MEDS ORDERED: METHADONE HCL 40 MG DISPERSABLE TABLET ONE (09:21)
[2019-06-05] MEDS ORDERED: METHADONE HCL 10 MG TABLET ONE (09:21)
[2019-06-05] MEDS: PRENATAL VITAMINS W/ FOLIC ACID TABLET (FP) PO SCH (10:06)
[2019-06-05] MEDS: NICOTINE 21 MG/24 HOURS TOPICAL PATCH TD SCH (10:07)
[2019-06-05 10:17] LABS: ALBUMIN 3.4 g/dl (3.4-5.0); BILIRUBIN,TOTAL 0.4 mg/dL (0.2-1); BLOOD UREA NITROGEN 16.6 mg/dL (7-18); CALCIUM 9.1 mg/dL (8.5-10.1); CREATININE 0.8 mg/dL (0.55-1.3); POTASSIUM 4.2 mmol/L (3.5-5.1); TOT PROT 7.1 g/dl (6.4-8.2)
[2019-06-05 10:24] LABS: HEMATOCRIT 36.7 % (35.4-49); HEMOGLOBIN 12.5 GM/dL (11.7-16.9); MCHC 34.1 g/dl (32.0-35.9); MEAN CELL VOLUME 102.9 fl (80-96); PLATELET COUNT 116 K/MM3 (134-434); RBC 3.57 M/mm3 (4.00-5.60); RDW 14.1 % (11.9-15.9); WHITE BLOOD COUNT 5.2 K/mm3 (4.0-10.0)
--- NOTE | 2019-06-05 11:48 | PN ---
[facility] CIWA - CIWA Score Nausea/Vomitin-Mild Nausea/No Vomiting Muscle Tremors: 2 Anxiety: 2 Agitation: 2 Paroxysmal Sweats: No Perspiration Orientation: 0-Oriented Tacttile Disturbances: 1-Very Mild Itch/Numbness Auditory Disturbances: 0-None Visual Disturbances: 0-None Headache: 2-Mild CIWA-Ar Total Score: 10 S Progress Note (SOAP) Subjective: alert,irritable,anxious,interrupted sleep,tremor Objective: 06/05/19 11:47 Vital Signs Temperature 97.1 F L 06/05/19 09:17 Pulse Rate 84 06/05/19 09:17 Respiratory Rate 18 06/05/19 09:17 Blood Pressure 125/80 06/05/19 09:17 O2 Sat by Pulse Oximetry (%) 06/05/19 11:47 Laboratory Last Values WBC 5.2 K/mm3 (4.0-10.0) 06/05/19 08:00 RBC 3.57 M/mm3 (4.00-5.60) L 06/05/19 08:00 Hgb 12.5 GM/dL (11.7-16.9) 06/05/19 08:00 Hct 36.7 % (35.4-49) 06/05/19 08:00 MCV 102.9 fl (80-96) H 06/05/19 08:00 MCH 35.0 pg (25.7-33.7) H 06/05/19 08:00 MCHC 34.1 g/dl (32.0-35.9) 06/05/19 08:00 RDW 14.1 % (11.9-15.9) 06/05/19 08:00 Plt Count 116 K/MM3 (134-434) L 06/05/19 08:00 MPV 10.0 fl (7.5-11.1) 06/05/19 08:00 Sodium 140 mmol/L (136-145) 06/05/19 08:00 Potassium 4.2 mmol/L (3.5-5.1) 06/05/19 08:00 Chloride 105 mmol/L (98-107) 06/05/19 08:00 Carbon Dioxide 30 mmol/L (21-32) 06/05/19 08:00 Anion Gap 5 MMOL/L (8-16) L 06/05/19 08:00 BUN 16.6 mg/dL (7-18) 06/05/19 08:00 Creatinine 0.8 mg/dL (0.55-1.3) 06/05/19 08:00 Est GFR (CKD-EPI)AfAm 125.04 06/05/19 08:00 Est GFR (CKD-EPI)NonAf 107.88 06/05/19 08:00 Random Glucose 96 mg/dL (74-106) 06/05/19 08:00 Calcium 9.1 mg/dL (8.5-10.1) 06/05/19 08:00 Total Bilirubin 0.4 mg/dL (0.2-1) 06/05/19 08:00 AST 78 U/L (15-37) H 06/05/19 08:00 ALT 108 U/L (13-61) H 06/05/19 08:00 Alkaline Phosphatase 174 U/L (45-117) H 06/05/19 08:00 Total Protein 7.1 g/dl (6.4-8.2) 06/05/19 08:00 Albumin 3.4 g/dl (3.4-5.0) 06/05/19 08:00 Assessment: 06/05/19 11:48 withdrawal symptom Plan: continue detox librium regimen
[2019-06-05] MEDS: THIAMINE HCL 100 MG TABLET (FP) PO SCH (22:16)
[2019-06-05] MEDS: MELATONIN 5 MG TABLETS PO PRN (22:16)
[2019-06-06] MEDS ORDERED: METHADONE HCL 10 MG TABLET ONE (04:05)
[2019-06-06] MEDS ORDERED: METHADONE HCL 40 MG DISPERSABLE TABLET ONE (04:06)
[2019-06-06] MEDS: METHADONE 80 MG, METHADONE 30 MG PO SCH (05:23)
[2019-06-06] MEDS: chlordiazePOXIDE HCL 25 MG CAPSULE PO SCH ×4 (05:23→22:13)
[2019-06-06] MEDS ORDERED: METHADONE HCL 40 MG DISPERSABLE TABLET PO SCH (06:00)
--- NOTE | 2019-06-06 10:12 | PN ---
S CIWA - CIWA Score Nausea/Vomitin Muscle Tremors: 2 Anxiety: 2 Agitation: 2 Paroxysmal Sweats: No Perspiration Orientation: 0-Oriented Tacttile Disturbances: 1-Very Mild Itch/Numbness Auditory Disturbances: 0-None Visual Disturbances: 0-None Headache: 1-Very Mild CIWA-Ar Total Score: 10 S Progress Note (SOAP) Subjective: alert,irritable,anxious,interrupted sleep,tremor Objective: 06/06/19 10:10 Vital Signs Temperature 98.8 F 06/06/19 09:18 Pulse Rate 68 06/06/19 09:18 Respiratory Rate 18 06/06/19 09:18 Blood Pressure 108/73 06/06/19 09:18 O2 Sat by Pulse Oximetry (%) 06/06/19 10:11 Laboratory Last Values WBC 5.2 K/mm3 (4.0-10.0) 06/05/19 08:00 RBC 3.57 M/mm3 (4.00-5.60) L 06/05/19 08:00 Hgb 12.5 GM/dL (11.7-16.9) 06/05/19 08:00 Hct 36.7 % (35.4-49) 06/05/19 08:00 MCV 102.9 fl (80-96) H 06/05/19 08:00 MCH 35.0 pg (25.7-33.7) H 06/05/19 08:00 MCHC 34.1 g/dl (32.0-35.9) 06/05/19 08:00 RDW 14.1 % (11.9-15.9) 06/05/19 08:00 Plt Count 116 K/MM3 (134-434) L 06/05/19 08:00 MPV 10.0 fl (7.5-11.1) 06/05/19 08:00 Sodium 140 mmol/L (136-145) 06/05/19 08:00 Potassium 4.2 mmol/L (3.5-5.1) 06/05/19 08:00 Chloride 105 mmol/L (98-107) 06/05/19 08:00 Carbon Dioxide 30 mmol/L (21-32) 06/05/19 08:00 Anion Gap 5 MMOL/L (8-16) L 06/05/19 08:00 BUN 16.6 mg/dL (7-18) 06/05/19 08:00 Creatinine 0.8 mg/dL (0.55-1.3) 06/05/19 08:00 Est GFR (CKD-EPI)AfAm 125.04 06/05/19 08:00 Est GFR (CKD-EPI)NonAf 107.88 06/05/19 08:00 Random Glucose 96 mg/dL (74-106) 06/05/19 08:00 Calcium 9.1 mg/dL (8.5-10.1) 06/05/19 08:00 Total Bilirubin 0.4 mg/dL (0.2-1) 06/05/19 08:00 AST 78 U/L (15-37) H 06/05/19 08:00 ALT 108 U/L (13-61) H 06/05/19 08:00 Alkaline Phosphatase 174 U/L (45-117) H 06/05/19 08:00 Total Protein 7.1 g/dl (6.4-8.2) 06/05/19 08:00 Albumin 3.4 g/dl (3.4-5.0) 06/05/19 08:00 RPR Titer Nonreactive (NONREACTIVE) 06/05/19 08:00 HIV 1&2 Antibody Screen Negative 06/05/19 08:00 HIV P24 Antigen Negative 06/05/19 08:00 Assessment: 06/06/19 10:11 withdrawal symptom Plan: continue detox librium regimen
[2019-06-06] MEDS: NICOTINE 21 MG/24 HOURS TOPICAL PATCH TD SCH (10:35)
[2019-06-06] MEDS: PRENATAL VITAMINS W/ FOLIC ACID TABLET (FP) PO SCH (10:35)
[2019-06-06] MEDS: THIAMINE HCL 100 MG TABLET (FP) PO SCH (22:13)
[2019-06-06] MEDS: MELATONIN 5 MG TABLETS PO PRN (22:13)
[2019-06-07] MEDS ORDERED: chlordiazePOXIDE HCL 10 MG CAPSULE PO PRN
[2019-06-07] MEDS ORDERED: METHADONE HCL 10 MG TABLET ONE (05:19)
[2019-06-07] MEDS ORDERED: METHADONE HCL 40 MG DISPERSABLE TABLET ONE (05:20)
[2019-06-07] MEDS: METHADONE 80 MG, METHADONE 30 MG PO SCH (06:10)
[2019-06-07] MEDS: chlordiazePOXIDE HCL 10 MG CAPSULE PO SCH ×4 (06:12→22:17)
[2019-06-07] MEDS: PRENATAL VITAMINS W/ FOLIC ACID TABLET (FP) PO SCH (10:06)
[2019-06-07] MEDS: NICOTINE 21 MG/24 HOURS TOPICAL PATCH TD SCH (10:07)
--- NOTE | 2019-06-07 12:02 | PN ---
S CIWA - CIWA Score Nausea/Vomitin-Mild Nausea/No Vomiting Muscle Tremors: 1-None Visible, but [place] Anxiety: 2 Agitation: 2 Paroxysmal Sweats: No Perspiration Orientation: 0-Oriented Tacttile Disturbances: 1-Very Mild Itch/Numbness Auditory Disturbances: 0-None Visual Disturbances: 0-None Headache: 1-Very Mild CIWA-Ar Total Score: 8 [facility] Progress Note (SOAP) Subjective: alert,irritable,anxious,interrupted sleep, Objective: 06/07/19 12:00 Vital Signs Temperature 97.6 F 06/07/19 09:34 Pulse Rate 70 06/07/19 09:34 Respiratory Rate 18 06/07/19 09:34 Blood Pressure 115/73 06/07/19 09:34 O2 Sat by Pulse Oximetry (%) Assessment: 06/07/19 12:00 withdrawal symptom Plan: continue detox librium regimen,benadryl 50 mgs po hs prn for insomnia,d/c melatonin
[2019-06-07] MEDS ORDERED: diphenhydrAMINE HCL 25 MG CAPSULE (FP) PO ONE (20:40)
[2019-06-07] MEDS: THIAMINE HCL 100 MG TABLET (FP) PO SCH (22:17)
[2019-06-07] MEDS: diphenhydrAMINE HCL 50 MG CAPSULE PO PRN (22:17)
[2019-06-08] MEDS ORDERED: METHADONE HCL 10 MG TABLET ONE (03:16)
[2019-06-08] MEDS ORDERED: METHADONE HCL 40 MG DISPERSABLE TABLET ONE (03:17)
[2019-06-08] MEDS: METHADONE 80 MG, METHADONE 30 MG PO SCH (05:50)
[2019-06-08] MEDS: chlordiazePOXIDE HCL 10 MG CAPSULE PO SCH ×2 (05:50→17:43)
--- NOTE | 2019-06-08 10:12 | PN ---
S CIWA - CIWA Score Nausea/Vomitin-Mild Nausea/No Vomiting Muscle Tremors: 1-None Visible, but [place] Anxiety: 1-Mildly Anxious Agitation: 1-Slight > Activity Paroxysmal Sweats: No Perspiration Orientation: 0-Oriented Tacttile Disturbances: 1-Very Mild Itch/Numbness Auditory Disturbances: 0-None Visual Disturbances: 0-None Headache: 1-Very Mild CIWA-Ar Total Score: 6 [facility] Progress Note (SOAP) Subjective: alert,irritable,anxious,interrupted sleep Objective: 06/08/19 10:11 Vital Signs Temperature 98.1 F 06/08/19 09:46 Pulse Rate 80 06/08/19 09:46 Respiratory Rate 18 06/08/19 09:46 Blood Pressure 118/76 06/08/19 09:46 O2 Sat by Pulse Oximetry (%) Assessment: 06/08/19 10:11 withdrawal symptom Plan: continue detox librium regimen,discharge in am
[2019-06-08] MEDS: NICOTINE 21 MG/24 HOURS TOPICAL PATCH TD SCH (10:17)
[2019-06-08] MEDS: PRENATAL VITAMINS W/ FOLIC ACID TABLET (FP) PO SCH (10:17)
[2019-06-08] MEDS ORDERED: ALBUTEROL SO4 8 GM HFA INHALER IH ONE (10:58)
[2019-06-08] MEDS ORDERED: ALBUTEROL SO4 8 GM HFA INHALER IH PRN (11:02)
[2019-06-08] MEDS: THIAMINE HCL 100 MG TABLET (FP) PO SCH (22:13)
[2019-06-08] MEDS ORDERED: diphenhydrAMINE HCL 25 MG CAPSULE (FP) PO ONE (22:14)
[2019-06-08] MEDS: diphenhydrAMINE HCL 50 MG CAPSULE PO PRN (22:15)
[2019-06-09] MEDS ORDERED: METHADONE HCL 10 MG TABLET ONE (04:21)
[2019-06-09] MEDS ORDERED: METHADONE HCL 40 MG DISPERSABLE TABLET ONE (04:22)
[2019-06-09] MEDS ORDERED: chlordiazePOXIDE HCL 10 MG CAPSULE PO ONE (05:00)
[2019-06-09] MEDS: METHADONE 80 MG, METHADONE 30 MG PO SCH (06:51)
[2019-06-09 07:04] VITALS: BP 118/81; PULSE 74; TEMP 98.6
--- NOTE | 2019-06-09 17:49 | DS ---
[facility] Detox Discharge Summary Admission Date: 06/04/19 Discharge Date: 06/09/19 - History Present History: Alcohol Dependence, Opioid Dependence, MMTP Additional Comments: PATIENT REFERRED TO [facility] ([place], [place]) FOR AFTERCARE. PATIENT WAS DISCHARGED FORM DETOX UNIT IN STABLE MEDICAL CONDITION. Pertinent Past History: Asthma, Hep C, Nicotine Dependence, Anxiety, Depression, Blind in Right Eye, MMTP. - Physical Exam Results Vital Signs: Vital Signs Temperature 98.6 F 06/09/19 07:04 Pulse Rate 74 06/09/19 07:04 Respiratory Rate 18 06/09/19 07:04 Blood Pressure 118/81 06/09/19 07:04 O2 Sat by Pulse Oximetry (%) Pertinent Admission Physical Exam Findings: WITHDRAWAL SYMPTOMS. Laboratory Tests 06/05/19 06/05/19 06/05/19 08:00 08:00 08:00 WBC 5.2 RBC 3.57 L Hgb 12.5 Hct 36.7 MCV 102.9 H MCH 35.0 H MCHC 34.1 RDW 14.1 Plt Count 116 L MPV 10.0 Sodium 140 Potassium 4.2 Chloride 105 Carbon Dioxide 30 Anion Gap 5 L BUN 16.6 Creatinine 0.8 Est GFR (CKD-EPI)AfAm 125.04 Est GFR (CKD-EPI)NonAf 107.88 Random Glucose 96 Calcium 9.1 Total Bilirubin 0.4 AST 78 H ALT 108 H Alkaline Phosphatase 174 H Total Protein 7.1 Albumin 3.4 RPR Titer HIV 1&2 Antibody Screen Negative HIV P24 Antigen Negative 06/05/19 08:00 WBC RBC Hgb Hct MCV MCH MCHC RDW Plt Count MPV Sodium Potassium Chloride Carbon Dioxide Anion Gap BUN Creatinine Est GFR (CKD-EPI)AfAm Est GFR (CKD-EPI)NonAf Random Glucose Calcium Total Bilirubin AST ALT Alkaline Phosphatase Total Protein Albumin RPR Titer Nonreactive HIV 1&2 Antibody Screen HIV P24 Antigen LABS NOTED. - Treatment Hospital Course: Detox Protocol Followed, Detoxed Safely, Responded well, Discharged Condition Good Patient has Accepted a Rehab Referral to: PATIENT REFERRED TO [facility] ([place], [place]). - Medication Discharge Medications: Ambulatory Orders Albuterol Sulfate Inhaler - [Ventolin HFA Inhaler -] 2 inh PO Q4H PRN #1 inhaler 06/09/19 - Diagnosis (1) Alcohol dependence with withdrawal, uncomplicated Status: Acute (2) Anxiety and depression Status: Chronic (3) Asthma Status: Chronic Qualifiers: Asthma severity: mild Asthma persistence: intermittent Asthma complication type: uncomplicated Qualified Code(s): J45.20 - Mild intermittent asthma, uncomplicated (4) Blind right eye Status: Chronic Qualifiers: Left eye visual impairment category: left - unspecified impairment Qualified Code(s): H54.40 - Blindness, one eye, unspecified eye (5) Hepatitis C Status: Chronic Qualifiers: Viral hepatitis chronicity: chronic Hepatic coma status: without hepatic coma Qualified Code(s): B18.2 - Chronic viral hepatitis C (6) Methadone maintenance therapy patient Status: Chronic (7) Nicotine dependence Status: Chronic Qualifiers: Nicotine product type: cigarettes Substance use status: in withdrawal Qualified Code(s): F17.213 - Nicotine dependence, cigarettes, with withdrawal - AMA Did Patient Leave Against Medical Advice: No
== END 2019-06-09 09:00 | disposition home or self-care (01) | DRG 773 ==
LOC: YASAS 19:48 → Y6N 23:19
PROVIDERS: ADMIT Allergy & Immunology; ATTEND Allergy & Immunology
PROC: HZ2ZZZZ Detoxification Services for Substance Abuse Treatment (ICD-10-PCS; principal; 2019-06-04)
DX: F10.230 Alcohol dependence with withdrawal, uncomplicated (principal); F11.20 Opioid dependence, uncomplicated; F12.10 Cannabis abuse, uncomplicated; F17.210 Nicotine dependence, cigarettes, uncomplicated; F32.9 Major depressive disorder, single episode, unspecified; F41.8 Other specified anxiety disorders; J45.20 Mild intermittent asthma, uncomplicated; H54.61 Unqualified visual loss, right eye, normal vision left eye; B18.2 Chronic viral hepatitis C; Z91.018 Allergy to other foods
CPT/HCPCS: 36415; 80053; 85027; 86593; 87389

== ENCOUNTER 2021-04-02 14:54 | Inpatient (IN) | payer OTHER ==
[2021-04-02] MEDS ORDERED: NICOTINE 10 MG CARTRIDGE (INHALER) IH PRN (18:37)
[2021-04-02] MEDS ORDERED: LORazepam 1 MG TABLET PO PRN (18:37)
[2021-04-02] MEDS ORDERED: IBUPROFEN 400 MG TABLET (FP) PO PRN (18:37)
[2021-04-02] MEDS ORDERED: MAGNESIUM HYDROX 2400MG/30ML ORAL SUSPENSION 30 ML CUP PO PRN (18:37)
[2021-04-02] MEDS ORDERED: MENTHOL/PHENOL 1 EACH UD MM PRN (18:37)
[2021-04-02] MEDS ORDERED: MAGNESIUM CITRATE 300 ML BOTTLE PO PRN (18:37)
[2021-04-02] MEDS ORDERED: BISMUTH SUBSALICYLATE 524 MG/30 ML PO PRN (18:37)
[2021-04-02] MEDS ORDERED: ACETAMINOPHEN 325 MG TABLET (FP) PO PRN ×2 (18:37)
[2021-04-02] MEDS ORDERED: ONDANSETRON *ODT* 4 MG TABLET SL PRN (18:37)
[2021-04-02] MEDS ORDERED: NALOXONE (NARCAN) HCL 4 MG/0.1 ML SPRAY NS PRN (18:37)
[2021-04-02] MEDS ORDERED: MAG HYDROX/AL HYDROX/SIMETH 30 ML UNIT-DOSE CUP PO PRN (18:37)
[2021-04-02] MEDS ORDERED: NICOTINE POLACRILEX 2 MG GUM BUC PRN (18:37)
[2021-04-02] MEDS ORDERED: ALBUTEROL SO4 HFA INHALER IH PRN (18:40)
[2021-04-02] MEDS: LORazepam 2 MG TABLET PO SCH ×2 (20:25→22:26)
[2021-04-02] MEDS ORDERED: MELATONIN 5 MG TABLETS PO SCH (22:00)
[2021-04-02] MEDS: hydrOXYzine PAMOATE 25 MG CAPSULE (FP) PO SCH (22:25)
[2021-04-02] MEDS: THIAMINE HCL 100 MG TABLET (FP) PO SCH (22:26)
[2021-04-03] MEDS: hydrOXYzine PAMOATE 25 MG CAPSULE (FP) PO SCH (05:54)
[2021-04-03] MEDS: LORazepam 2 MG TABLET PO SCH ×4 (05:54→22:51)
[2021-04-03] MEDS ORDERED: hydrOXYzine PAMOATE 25 MG CAPSULE (FP) PO PRN (08:40)
[2021-04-03] MEDS ORDERED: methaDONE HCL 10 MG TABLET PO ONE (08:41)
[2021-04-03] MEDS ORDERED: methaDONE HCL 10 MG TABLET ONE (09:44)
[2021-04-03] MEDS ORDERED: methaDONE HCL 40 MG DISPERSABLE TABLET ONE (09:45)
[2021-04-03 10:07] LABS: ALBUMIN 1.9 g/dl (3.4-5.0); BLOOD UREA NITROGEN 5.8 mg/dL (7-18); CALCIUM 8.1 mg/dL (8.5-10.1)
[2021-04-03 10:10] LABS: CREATININE 0.6 mg/dL (0.55-1.3)
[2021-04-03 10:12] LABS: BILIRUBIN,TOTAL 1.5 mg/dL (0.2-1); TOT PROT 8.7 g/dl (6.4-8.2)
[2021-04-03 11:27] LABS: HEMATOCRIT 31.9 % (35.4-49); MCH 37.2 pg (25.7-33.7); MCHC 34.5 g/dl (32.0-35.9); MEAN CELL VOLUME 107.7 fl (80-96); MEAN PLT VOLUME 9.3 fl (7.5-11.1); PLATELET COUNT 73 10^3/uL (134-434); RBC 2.96 M/mm3 (4.00-5.60); RDW 13.6 % (11.9-15.9); WHITE BLOOD COUNT 4.9 K/mm3 (4.0-10.0)
[2021-04-03] MEDS: THIAMINE HCL 100 MG TABLET (FP) PO SCH (22:50)
[2021-04-03] MEDS: SUVOREXANT 10 MG TABLET PO PRN (22:52)
[2021-04-04] MEDS ORDERED: methaDONE HCL 40 MG DISPERSABLE TABLET ONE (04:22)
[2021-04-04] MEDS ORDERED: methaDONE HCL 10 MG TABLET ONE (04:22)
[2021-04-04] MEDS ORDERED: methaDONE HCL 40 MG DISPERSABLE TABLET PO SCH (06:00)
[2021-04-04] MEDS: LORazepam 1 MG TABLET PO SCH ×4 (06:14→22:35)
[2021-04-04 14:47] LABS: INR 1.65 (0.83-1.09); PROTHROMBIN TIME (PATIENT) 20.4 SEC (9.7-13.0)
[2021-04-04 18:39] LABS: BLOOD UREA NITROGEN 10.3 mg/dL (7-18); CALCIUM 8.3 mg/dL (8.5-10.1)
[2021-04-04 18:42] LABS: CREATININE 0.7 mg/dL (0.55-1.3)
[2021-04-04 18:43] LABS: TOT PROT 9.4 g/dl (6.4-8.2)
[2021-04-04 18:44] LABS: BILIRUBIN,TOTAL 3.7 mg/dL (0.2-1)
[2021-04-04] MEDS: THIAMINE HCL 100 MG TABLET (FP) PO SCH (22:35)
[2021-04-05] MEDS ORDERED: LORazepam 0.5 MG TABLET PO PRN
[2021-04-05] MEDS ORDERED: methaDONE HCL 10 MG TABLET ONE (04:27)
[2021-04-05] MEDS ORDERED: methaDONE HCL 40 MG DISPERSABLE TABLET ONE (04:27)
[2021-04-05] MEDS: LORazepam 0.5 MG TABLET PO SCH ×4 (05:27→22:14)
[2021-04-05] MEDS: THIAMINE HCL 100 MG TABLET (FP) PO SCH (22:13)
[2021-04-05] MEDS: METHOCARBAMOL 500 MG TABLET PO PRN (22:13)
[2021-04-05] MEDS: SUVOREXANT 10 MG TABLET PO PRN (22:13)
[2021-04-06] MEDS ORDERED: methaDONE HCL 10 MG TABLET ONE (04:19)
[2021-04-06] MEDS ORDERED: methaDONE HCL 40 MG DISPERSABLE TABLET ONE (04:20)
[2021-04-06] MEDS ORDERED: LORazepam 0.5 MG TABLET PO ONE (05:00)
[2021-04-06] MEDS: METHOCARBAMOL 500 MG TABLET PO PRN (06:04)
[2021-04-06 09:06] VITALS: BP 108/71; PULSE 94; TEMP 98.7
== END 2021-04-06 11:50 | disposition other institution (70) | DRG 773 ==
LOC: YASAS 14:54 → Y3N 19:15
PROVIDERS: ADMIT Allergy & Immunology; ATTEND Allergy & Immunology
PROC: HZ2ZZZZ Detoxification Services for Substance Abuse Treatment (ICD-10-PCS; principal; 2021-04-02)
DX: F10.230 Alcohol dependence with withdrawal, uncomplicated (principal); F11.20 Opioid dependence, uncomplicated; F17.210 Nicotine dependence, cigarettes, uncomplicated; F19.282 Other psychoactive substance dependence with psychoactive substance-induced sleep disorder; F19.24 Other psychoactive substance dependence with psychoactive substance-induced mood disorder; F10.24 Alcohol dependence with alcohol-induced mood disorder; F10.282 Alcohol dependence with alcohol-induced sleep disorder; G40.909 Epilepsy, unspecified, not intractable, without status epilepticus; I10 Essential (primary) hypertension; J45.20 Mild intermittent asthma, uncomplicated; R74.01 Elevation of levels of liver transaminase levels; R74.8 Abnormal levels of other serum enzymes; Z86.19 Personal history of other infectious and parasitic diseases; Z91.018 Allergy to other foods
CPT/HCPCS: 36415; 80053; 85027; 85610; 86780; C9803; U0003; U0005

== ENCOUNTER 2021-04-06 12:01 | Inpatient (IN) | payer OTHER ==
[2021-04-06] MEDS ORDERED: LOPERAMIDE HCL 2 MG CAPSULE PO PRN (14:07)
[2021-04-06] MEDS ORDERED: MAGNESIUM HYDROX 2400MG/30ML ORAL SUSPENSION 30 ML CUP PO PRN (14:07)
[2021-04-06] MEDS ORDERED: NICOTINE 10 MG CARTRIDGE (INHALER) IH PRN (14:07)
[2021-04-06] MEDS ORDERED: ALBUTEROL SO4 HFA INHALER IH PRN (14:07)
[2021-04-06] MEDS ORDERED: MENTHOL/PHENOL 1 EACH UD MM PRN (14:07)
[2021-04-06] MEDS ORDERED: guaiFENesin 200 MG/10 ML 10 ML UNIT-DOSE CUPS PO PRN (14:07)
[2021-04-06] MEDS ORDERED: MAGNESIUM CITRATE 300 ML BOTTLE PO PRN (14:07)
[2021-04-06] MEDS ORDERED: ACETAMINOPHEN 325 MG TABLET (FP) PO PRN (14:07)
[2021-04-06] MEDS ORDERED: P-EPHED 60MG/TRIPROLIDI 2.5MG TABLET PO PRN (14:07)
[2021-04-06] MEDS ORDERED: MAG HYDROX/AL HYDROX/SIMETH 30 ML UNIT-DOSE CUP PO PRN (14:07)
[2021-04-06] MEDS ORDERED: NICOTINE POLACRILEX 2 MG GUM BUC PRN (14:14)
[2021-04-06] MEDS ORDERED: TUBERCULIN PPD 5 TU/0.1ML VIAL ID ONE (15:52)
[2021-04-06] MEDS: hydrOXYzine PAMOATE 25 MG CAPSULE (FP) PO SCH ×2 (18:28→22:03)
[2021-04-06] MEDS: THIAMINE HCL 100 MG TABLET (FP) PO SCH (22:03)
[2021-04-06] MEDS: MELATONIN 5 MG TABLETS PO SCH (22:03)
[2021-04-07] MEDS ORDERED: methaDONE HCL 40 MG DISPERSABLE TABLET ONE (04:10)
[2021-04-07] MEDS ORDERED: methaDONE HCL 10 MG TABLET ONE (04:10)
[2021-04-07] MEDS: hydrOXYzine PAMOATE 25 MG CAPSULE (FP) PO SCH ×5 (06:16→21:04)
[2021-04-07] MEDS ORDERED: NICOTINE 7 MG/24 HOURS TOPICAL PATCH TD SCH (10:00)
[2021-04-07] MEDS: PRENATAL VITAMINS W/ FOLIC ACID TABLET (FP) PO SCH (10:44)
[2021-04-07] MEDS ORDERED: PT OWN MED DRAWER 7, Y5N ONE ×2 (14:13→16:12)
[2021-04-07] MEDS: MELATONIN 5 MG TABLETS PO SCH (21:04)
[2021-04-07] MEDS: THIAMINE HCL 100 MG TABLET (FP) PO SCH (21:04)
[2021-04-08] MEDS ORDERED: methaDONE HCL 40 MG DISPERSABLE TABLET ONE (03:08)
[2021-04-08] MEDS ORDERED: methaDONE HCL 10 MG TABLET ONE (03:08)
[2021-04-08] MEDS: hydrOXYzine PAMOATE 25 MG CAPSULE (FP) PO SCH ×5 (06:12→21:01)
[2021-04-08] MEDS: PRENATAL VITAMINS W/ FOLIC ACID TABLET (FP) PO SCH (10:28)
[2021-04-08] MEDS: MELATONIN 5 MG TABLETS PO SCH (21:01)
[2021-04-08] MEDS: THIAMINE HCL 100 MG TABLET (FP) PO SCH (21:01)
[2021-04-09] MEDS ORDERED: methaDONE HCL 10 MG TABLET ONE (03:09)
[2021-04-09] MEDS ORDERED: methaDONE HCL 40 MG DISPERSABLE TABLET ONE (03:09)
[2021-04-09] MEDS: hydrOXYzine PAMOATE 25 MG CAPSULE (FP) PO SCH ×5 (06:15→21:23)
[2021-04-09] MEDS: PRENATAL VITAMINS W/ FOLIC ACID TABLET (FP) PO SCH (09:49)
[2021-04-09] MEDS: THIAMINE HCL 100 MG TABLET (FP) PO SCH (21:23)
[2021-04-09] MEDS: MELATONIN 5 MG TABLETS PO SCH (21:23)
[2021-04-10] MEDS ORDERED: methaDONE HCL 10 MG TABLET ONE (02:53)
[2021-04-10] MEDS ORDERED: methaDONE HCL 40 MG DISPERSABLE TABLET ONE (02:53)
[2021-04-10] MEDS: hydrOXYzine PAMOATE 25 MG CAPSULE (FP) PO SCH ×5 (06:02→21:01)
[2021-04-10] MEDS: PRENATAL VITAMINS W/ FOLIC ACID TABLET (FP) PO SCH (10:19)
[2021-04-10] MEDS: THIAMINE HCL 100 MG TABLET (FP) PO SCH (21:00)
[2021-04-10] MEDS: MELATONIN 5 MG TABLETS PO SCH (21:00)
[2021-04-11] MEDS ORDERED: methaDONE HCL 10 MG TABLET ONE (03:02)
[2021-04-11] MEDS ORDERED: methaDONE HCL 40 MG DISPERSABLE TABLET ONE (03:02)
[2021-04-11] MEDS: hydrOXYzine PAMOATE 25 MG CAPSULE (FP) PO SCH ×5 (06:15→21:46)
[2021-04-11] MEDS: PRENATAL VITAMINS W/ FOLIC ACID TABLET (FP) PO SCH (09:38)
[2021-04-11] MEDS: MELATONIN 5 MG TABLETS PO SCH (21:45)
[2021-04-11] MEDS: THIAMINE HCL 100 MG TABLET (FP) PO SCH (21:45)
[2021-04-12] MEDS ORDERED: methaDONE HCL 40 MG DISPERSABLE TABLET ONE (02:41)
[2021-04-12] MEDS ORDERED: methaDONE HCL 10 MG TABLET ONE (02:42)
[2021-04-12] MEDS: hydrOXYzine PAMOATE 25 MG CAPSULE (FP) PO SCH ×5 (05:59→21:30)
[2021-04-12] MEDS: PRENATAL VITAMINS W/ FOLIC ACID TABLET (FP) PO SCH (10:17)
[2021-04-12] MEDS: THIAMINE HCL 100 MG TABLET (FP) PO SCH (21:30)
[2021-04-12] MEDS: MELATONIN 5 MG TABLETS PO SCH (21:30)
[2021-04-13] MEDS ORDERED: methaDONE HCL 40 MG DISPERSABLE TABLET ONE (02:52)
[2021-04-13] MEDS ORDERED: methaDONE HCL 10 MG TABLET ONE (02:53)
[2021-04-13] MEDS: hydrOXYzine PAMOATE 25 MG CAPSULE (FP) PO SCH ×5 (05:48→21:44)
[2021-04-13] MEDS: PRENATAL VITAMINS W/ FOLIC ACID TABLET (FP) PO SCH (09:41)
[2021-04-13] MEDS: MELATONIN 5 MG TABLETS PO SCH (21:44)
[2021-04-13] MEDS: THIAMINE HCL 100 MG TABLET (FP) PO SCH (21:44)
[2021-04-13] MEDS: IBUPROFEN 400 MG TABLET (FP) PO PRN (22:33)
[2021-04-14] MEDS ORDERED: methaDONE HCL 40 MG DISPERSABLE TABLET ONE (02:57)
[2021-04-14] MEDS ORDERED: methaDONE HCL 10 MG TABLET ONE (02:57)
[2021-04-14] MEDS: hydrOXYzine PAMOATE 25 MG CAPSULE (FP) PO SCH ×5 (06:14→21:05)
[2021-04-14] MEDS: IBUPROFEN 400 MG TABLET (FP) PO PRN ×2 (06:16→14:37)
[2021-04-14] MEDS: PRENATAL VITAMINS W/ FOLIC ACID TABLET (FP) PO SCH (10:05)
[2021-04-14] MEDS: THIAMINE HCL 100 MG TABLET (FP) PO SCH (21:05)
[2021-04-14] MEDS: MELATONIN 5 MG TABLETS PO SCH (21:05)
[2021-04-15] MEDS ORDERED: methaDONE HCL 40 MG DISPERSABLE TABLET ONE (03:13)
[2021-04-15] MEDS ORDERED: methaDONE HCL 10 MG TABLET ONE (03:13)
[2021-04-15] MEDS: hydrOXYzine PAMOATE 25 MG CAPSULE (FP) PO SCH ×5 (06:08→21:25)
[2021-04-15] MEDS: PRENATAL VITAMINS W/ FOLIC ACID TABLET (FP) PO SCH (09:45)
[2021-04-15] MEDS: THIAMINE HCL 100 MG TABLET (FP) PO SCH (21:24)
[2021-04-15] MEDS: MELATONIN 5 MG TABLETS PO SCH (21:25)
[2021-04-16] MEDS ORDERED: methaDONE HCL 40 MG DISPERSABLE TABLET ONE (06:01)
[2021-04-16] MEDS ORDERED: methaDONE HCL 10 MG TABLET ONE (06:01)
[2021-04-16] MEDS: hydrOXYzine PAMOATE 25 MG CAPSULE (FP) PO SCH ×2 (06:11→09:20)
[2021-04-16] MEDS: PRENATAL VITAMINS W/ FOLIC ACID TABLET (FP) PO SCH (09:20)
[2021-04-16] MEDS: THIAMINE HCL 100 MG TABLET (FP) PO SCH (21:02)
[2021-04-16] MEDS: MELATONIN 5 MG TABLETS PO SCH (21:02)
[2021-04-16] MEDS: hydrOXYzine PAMOATE 25 MG CAPSULE (FP) PO PRN (21:03)
[2021-04-17] MEDS ORDERED: methaDONE HCL 40 MG DISPERSABLE TABLET ONE (02:56)
[2021-04-17] MEDS ORDERED: methaDONE HCL 10 MG TABLET ONE (02:56)
[2021-04-17] MEDS: hydrOXYzine PAMOATE 25 MG CAPSULE (FP) PO PRN (10:07)
[2021-04-17] MEDS: PRENATAL VITAMINS W/ FOLIC ACID TABLET (FP) PO SCH (10:07)
[2021-04-17] MEDS: MELATONIN 5 MG TABLETS PO SCH (21:48)
[2021-04-17] MEDS: THIAMINE HCL 100 MG TABLET (FP) PO SCH (21:48)
[2021-04-18] MEDS ORDERED: methaDONE HCL 10 MG TABLET ONE (03:06)
[2021-04-18] MEDS ORDERED: methaDONE HCL 40 MG DISPERSABLE TABLET ONE (03:06)
[2021-04-18] MEDS: PRENATAL VITAMINS W/ FOLIC ACID TABLET (FP) PO SCH (09:29)
[2021-04-18] MEDS: MELATONIN 5 MG TABLETS PO SCH (21:00)
[2021-04-18] MEDS: THIAMINE HCL 100 MG TABLET (FP) PO SCH (21:00)
[2021-04-18] MEDS: hydrOXYzine PAMOATE 25 MG CAPSULE (FP) PO PRN (21:00)
[2021-04-19] MEDS ORDERED: methaDONE HCL 40 MG DISPERSABLE TABLET ONE (02:58)
[2021-04-19] MEDS ORDERED: methaDONE HCL 10 MG TABLET ONE (02:58)
[2021-04-19 06:42] VITALS: TEMP 98.4
[2021-04-19] MEDS: PRENATAL VITAMINS W/ FOLIC ACID TABLET (FP) PO SCH (09:56)
[2021-04-19] MEDS: hydrOXYzine PAMOATE 25 MG CAPSULE (FP) PO PRN ×2 (09:57→21:38)
[2021-04-19] MEDS: THIAMINE HCL 100 MG TABLET (FP) PO SCH (21:37)
[2021-04-19] MEDS: MELATONIN 5 MG TABLETS PO SCH (21:38)
[2021-04-20] MEDS ORDERED: methaDONE HCL 40 MG DISPERSABLE TABLET ONE (03:13)
[2021-04-20] MEDS ORDERED: methaDONE HCL 10 MG TABLET ONE (03:13)
[2021-04-20 06:43] VITALS: BP 126/87; PULSE 74
== END 2021-04-20 09:48 | disposition home or self-care (01) | DRG 772 ==
LOC: YASAS 12:01 → Y3W 12:02
PROVIDERS: ADMIT Allergy & Immunology; ATTEND Allergy & Immunology
PROC: HZ42ZZZ Group Counseling for Substance Abuse Treatment, Cognitive-Behavioral (ICD-10-PCS; principal; 2021-04-06)
DX: F10.20 Alcohol dependence, uncomplicated (principal); F11.20 Opioid dependence, uncomplicated; J45.909 Unspecified asthma, uncomplicated

== ENCOUNTER 2021-04-30 10:48 | Inpatient (IN) | payer OTHER ==
[2021-04-30] MEDS ORDERED: NICOTINE 10 MG CARTRIDGE (INHALER) IH PRN (11:08)
[2021-04-30] MEDS ORDERED: MAGNESIUM CITRATE 300 ML BOTTLE PO PRN (11:08)
[2021-04-30] MEDS ORDERED: ACETAMINOPHEN 325 MG TABLET (FP) PO PRN ×2 (11:08)
[2021-04-30] MEDS ORDERED: MENTHOL/PHENOL 1 EACH UD MM PRN (11:08)
[2021-04-30] MEDS ORDERED: MAG HYDROX/AL HYDROX/SIMETH 30 ML UNIT-DOSE CUP PO PRN (11:08)
[2021-04-30] MEDS ORDERED: MAGNESIUM HYDROX 2400MG/30ML ORAL SUSPENSION 30 ML CUP PO PRN (11:08)
[2021-04-30] MEDS ORDERED: diazePAM 5 MG TABLET PO PRN (11:08)
[2021-04-30] MEDS ORDERED: IBUPROFEN 400 MG TABLET (FP) PO PRN (11:08)
[2021-04-30] MEDS ORDERED: BISMUTH SUBSALICYLATE 262 MG/15 ML BTL PO PRN (11:08)
[2021-04-30] MEDS ORDERED: ALBUTEROL SO4 HFA INHALER IH PRN (11:09)
[2021-04-30 11:27] VITALS: BMI 20.6
[2021-04-30] MEDS: diazePAM 5 MG TABLET PO SCH ×3 (12:38→22:45)
[2021-04-30] MEDS: hydrOXYzine PAMOATE 25 MG CAPSULE (FP) PO SCH ×3 (15:31→22:45)
[2021-04-30] MEDS: THIAMINE HCL 100 MG TABLET (FP) PO SCH (22:45)
[2021-04-30] MEDS: METHOCARBAMOL 500 MG TABLET PO PRN (22:45)
[2021-04-30] MEDS: MELATONIN 5 MG TABLETS PO SCH (22:45)
[2021-05-01] MEDS: diazePAM 5 MG TABLET PO SCH ×4 (05:55→22:33)
[2021-05-01] MEDS: hydrOXYzine PAMOATE 25 MG CAPSULE (FP) PO SCH (05:55)
[2021-05-01] MEDS: ONDANSETRON *ODT* 4 MG TABLET SL PRN ×2 (05:56→22:33)
[2021-05-01] MEDS ORDERED: methaDONE HCL 10 MG TABLET ONE (09:59)
[2021-05-01] MEDS ORDERED: methaDONE HCL 40 MG DISPERSABLE TABLET ONE (09:59)
[2021-05-01] MEDS ORDERED: methaDONE HCL 40 MG DISPERSABLE TABLET PO SCH (10:00)
[2021-05-01] MEDS: PRENATAL VITAMINS W/ FOLIC ACID TABLET (FP) PO SCH (10:39)
[2021-05-01 11:26] LABS: HEMATOCRIT 32.3 % (35.4-49); HEMOGLOBIN 11.5 GM/dL (11.7-16.9); MCH 36.5 pg (25.7-33.7); MCHC 35.5 g/dl (32.0-35.9); MEAN CELL VOLUME 102.8 fl (80-96); MEAN PLT VOLUME 8.6 fl (7.5-11.1); PLATELET COUNT 78 10^3/uL (134-434); RBC 3.14 M/mm3 (4.00-5.60); RDW 13.7 % (11.9-15.9)
[2021-05-01 11:39] LABS: ALBUMIN 1.8 g/dl (3.4-5.0); BLOOD UREA NITROGEN 6.5 mg/dL (7-18); CALCIUM 8.1 mg/dL (8.5-10.1)
[2021-05-01 11:42] LABS: CREATININE 0.6 mg/dL (0.55-1.3)
[2021-05-01 11:44] LABS: BILIRUBIN,TOTAL 1.8 mg/dL (0.2-1); TOT PROT 8.5 g/dl (6.4-8.2)
[2021-05-01] MEDS: hydrOXYzine PAMOATE 25 MG CAPSULE (FP) PO PRN (17:50)
[2021-05-01] MEDS: THIAMINE HCL 100 MG TABLET (FP) PO SCH (22:33)
[2021-05-01] MEDS: MELATONIN 5 MG TABLETS PO SCH (22:33)
[2021-05-02] MEDS: diazePAM 5 MG TABLET PO SCH ×3 (06:30→22:10)
[2021-05-02] MEDS ORDERED: methaDONE HCL 10 MG TABLET ONE (08:48)
[2021-05-02] MEDS ORDERED: methaDONE HCL 40 MG DISPERSABLE TABLET ONE (08:49)
[2021-05-02] MEDS: PRENATAL VITAMINS W/ FOLIC ACID TABLET (FP) PO SCH (10:15)
[2021-05-02 11:30] LABS: HEMATOCRIT 31.6 % (35.4-49); HEMOGLOBIN 10.9 GM/dL (11.7-16.9); MCH 36.3 pg (25.7-33.7); MCHC 34.6 g/dl (32.0-35.9); MEAN PLT VOLUME 8.4 fl (7.5-11.1); PLATELET COUNT 70 10^3/uL (134-434); RBC 3.01 M/mm3 (4.00-5.60); RDW 13.8 % (11.9-15.9); WHITE BLOOD COUNT 6.2 K/mm3 (4.0-10.0)
[2021-05-02 12:07] LABS: ALBUMIN 1.6 g/dl (3.4-5.0); BLOOD UREA NITROGEN 8.4 mg/dL (7-18)
[2021-05-02 12:10] LABS: CREATININE 0.6 mg/dL (0.55-1.3)
[2021-05-02 12:12] LABS: BILIRUBIN,TOTAL 1.5 mg/dL (0.2-1); TOT PROT 7.9 g/dl (6.4-8.2)
[2021-05-02] MEDS: MELATONIN 5 MG TABLETS PO SCH (22:10)
[2021-05-02] MEDS: THIAMINE HCL 100 MG TABLET (FP) PO SCH (22:10)
[2021-05-02] MEDS: METHOCARBAMOL 500 MG TABLET PO PRN (22:12)
[2021-05-02] MEDS: hydrOXYzine PAMOATE 25 MG CAPSULE (FP) PO PRN (22:12)
[2021-05-03] MEDS: diazePAM 5 MG TABLET PO SCH ×2 (06:07→17:46)
[2021-05-03] MEDS ORDERED: methaDONE HCL 10 MG TABLET ONE (09:29)
[2021-05-03] MEDS ORDERED: methaDONE HCL 40 MG DISPERSABLE TABLET ONE (09:29)
[2021-05-03] MEDS: PRENATAL VITAMINS W/ FOLIC ACID TABLET (FP) PO SCH (10:14)
[2021-05-03] MEDS: THIAMINE HCL 100 MG TABLET (FP) PO SCH (22:08)
[2021-05-03] MEDS: MELATONIN 5 MG TABLETS PO SCH (22:08)
[2021-05-03] MEDS: METHOCARBAMOL 500 MG TABLET PO PRN (22:08)
[2021-05-04] MEDS ORDERED: diazePAM 5 MG TABLET PO ONE (06:00)
[2021-05-04] MEDS ORDERED: methaDONE HCL 10 MG TABLET ONE (08:45)
[2021-05-04] MEDS ORDERED: methaDONE HCL 40 MG DISPERSABLE TABLET ONE (08:45)
[2021-05-04 08:54] VITALS: BP 114/69; PULSE 91; TEMP 97.3
[2021-05-04] MEDS: PRENATAL VITAMINS W/ FOLIC ACID TABLET (FP) PO SCH (09:27)
== END 2021-05-04 12:40 | disposition home or self-care (01) | DRG 773 ==
LOC: YASAS 10:48 → Y3N 11:36
PROVIDERS: ADMIT Allergy & Immunology; ATTEND Allergy & Immunology
PROC: HZ2ZZZZ Detoxification Services for Substance Abuse Treatment (ICD-10-PCS; principal; 2021-04-30)
DX: F10.230 Alcohol dependence with withdrawal, uncomplicated (principal); F11.20 Opioid dependence, uncomplicated; F17.210 Nicotine dependence, cigarettes, uncomplicated; J45.20 Mild intermittent asthma, uncomplicated; B18.2 Chronic viral hepatitis C; R74.8 Abnormal levels of other serum enzymes; Z59.00 Homelessness unspecified; Z91.018 Allergy to other foods
CPT/HCPCS: 36415; 80053; 85027; 86780; C9803; Q0162; U0003; U0005